=== PATIENT | female | born 2000 | race Caucasian/White ===

== ENCOUNTER 2024-09-26 08:47 | Emergency (ER) | payer OTHER, SELFPAY ==
[2024-09-26 08:53] VITALS: BP 125/80; PULSE 88; TEMP 37.2; O2SAT 99; BMI 28.2
--- OUTSIDE RECORDS SUMMARY | 2024-09-26 09:00 | XMS_ITS | Encounter Summary ---
Author Organization [facility] Address [address] [place] [address] Care Team Providers Care Endodontics Dentist Name Role Phone Keturah Saavedra Olvin NAVIGATING OFFICER-TRIGONOMETRY TEACHER Unavailable Ralph Taylor MD Primary Care Provider Blossom Cat NP Unavailable Beena Chambers NP Unavailable Blossom Badillo Unavailable Ralph Taylor MD Unavailable Tere Estrada NAVIGATING OFFICER-DIRECTOR OF FINANCIAL AID Unavailable Tere Estrada NAVIGATING OFFICER-DIRECTOR OF FINANCIAL AID Unavailable Mo Calero TEACHER EDUCATION DIRECTOR Unavailable Unavailable Savi Garcia LPCC Unavailable [phone] Encounter Details Date Type Department Care Team (Late st Contact Info) Description 09/01/2022 Abstract [facility] [address] [place] [address] Blossom Cat NP [address] [facility] [place] [address] Social History Tobacco Use Types Packs/Day Years Used Date Smoking Tobacco: Never Smokeless Tobacco: Never Alcohol Use Standard Drinks/Week Comments Never 0 (1 standard drink = 0.6 oz pure alcohol) Caffeine intake 1-2 cups per day, 1-2 drinks less than monthly in the past year Humiliation, Afraid, Rape, and Kick questionnair e Answer Date Recorded Within the last year, have y ou been afraid of your partner or ex-partner? No 08/04/2022 Within the last year, have y ou been humiliated or emotionally abused in other ways by your partner or ex-partner? No Within the last year, have y ou been kicked, hit, slapped, or otherwise physically hurt by your partner or ex-partner? No 08/04/2022 Within the last year, have y ou been raped or forced to have any kind of sexual activity by your partner or ex-partner? No 08/04/2022 Social Connection and Isolat ion Panel [NHANES] Answer Date Recorded In a typical week, how many times do you talk on the phone with family, friends, or neighbors? More than three times a week 08/04/2022 How often do you get togethe r with friends or relatives? Twice a week 08/04/2022 How often do you attend chur ch or judaism services? Never 08/04/2022 Do you belong to any clubs o r organizations such as congregation groups, unions, fraternal or athletic groups, or school groups? No 08/04/2022 How often do you attend meet ings of the clubs or organizations you belong to? Patient declined 08/04/2022 Are you , , di vorced, , never , or living with a partner? Never 08/04/2022 AUDIT-C Answer Date Recorded Q1: How often do you have a drink containing alcohol? Never 09/05/2022 Q2: How many drinks containi ng alcohol do you have on a typical day when you are drinking? Patient does not drink Q3: How often do you have si x or more drinks on one occasion? Never 09/05/2022 Overall Financial Resource Strain (CARDIA) Answe r Date Recorded How hard is it for you to pa y for the very basics like food, housing, medical care, and heating? Not hard at all 08/04/2022 PHQ-2 Answer Date Recorded Patient Health Questionnaire-2 Score 2 09/05/2022 [facility] - Occupational Stress Questionnaire Answer Date Recorded Do you feel stress - tense, restless, nervous, or anxious, or unable to sleep at night because your mind is troubled all the time - these days? Very much 08/04/2022 Exercise Vital Sign Answer Date Recorde d On average, how many days pe r week do you engage in moderate to strenuous exercise (like a brisk walk)? 7 days 08/04/2022 On average, how many minutes do you engage in exercise at this level? 60 min 08/04/2022 Hunger Vital Sign Answer Date Recorded Within the past 12 months, y ou worried that your food would run out before you got the money to buy more. Never true 08/05/19 23 Within the past 12 months, t he food you bought just didn't last and you didn't have money to get more. Never true 08/04/2022 PRAPARE - Transportation Answer Date Re corded In the past 12 months, has l ack of transportation kept you from medical appointments or from getting medications? No 07/17 In the past 12 months, has l ack of transportation kept you from meetings, work, or from getting things needed for daily living? No 08/04/2022 Housing Stability Vital Sign Answer Simone e Recorded In the last 12 months, was t here a time when you were not able to pay the mortgage or rent on time? No 08/04/2022 In the last 12 months, how many places have you lived? 1 08/04/2022 In the last 12 months, was t here a time when you did not have a steady place to sleep or slept in a half-way (including now)? No 08/04/2022 Comments No Sex and Gender Information Value Date Recorded Sex Assigned at Female 11/26/2023 8:38 AM EDT Legal Sex Female 6:44 PM EDT Gender Identity Female 11/26/2023 8:38 AM EDT Sexual Orientation Straight 11/26/2023 8: 38 AM EDT COVID-19 Exposure Response Date Recorded In the last 10 days, have yo u been in contact with someone who was confirmed or suspected to have Coronavirus/COVID-19? No / Unsure 08/04/2022 8:41 PM EDT documented as of this encounter Plan of Treatment Upcoming Encounters Date Type Department Care Team (Late st Contact Info) Description 09/29/2024 8:15 AM EDT Office Visit [facility] [address] [place] [phone] Mario Duckworth MD [address] [place] [address] 10/05/2024 10:00 AM EDT [facility] [address] [place] [address] Tere Estrada, NAVIGATING OFFICER-DIRECTOR OF FINANCIAL AID [address] [place] [address] 10/06/2024 10:40 AM EDT Office Visit [facility] [address] [place] [address] Beena Chambers, REPORTING CONSULTANT [address] [place] [phone] documented as of this encounter Visit Diagnoses Not on filedocumented in this encounter Additional Health Concerns Assessment Noted Time PHQ-9 Depression Total Score: 22 023 8:59 AM EDT documented as of this encounter Care Teams Endodontics Dentist Relationship Specialty Start Date End Date Keturah Saavedra, NAVIGATING OFFICER-TRIGONOMETRY TEACHER [address] [place] [address] PCP - [facility] 05/17/20 Ralph Taylor MD [address] [place] [address] PCP - General Family Medicine 07/01/22 Blossom Badillo [address] [place], [place] [id number] PCP - [facility] 09/16/22 Ralph Taylor MD [address] [place] [address] PCP - [facility] 10/17/22 Tere Estrada, NAVIGATING OFFICER-DIRECTOR OF FINANCIAL AID [address] [place] [address] PCP - [facility] 03/19/23 Blossom Oscar NP [address] [place] [address] Nurse Practitioner Family Medicine 10/07/22 04/22/24 Beena Chambers, REPORTING CONSULTANT [address] [place] [address] Nurse Practitioner Pulmonary Disease 10/07/22 Tere Estrada, NAVIGATING OFFICER-[facility] [address] [facility] [address] [place] [address] Nurse Practitioner Psychiatry 03/04/24 Mo Calero [facility] Director Behavioral Health 03/23/24 08/15/24 Savi Garcia, [facility] [address] [facility] [address] [place] [address] Research Center Director Behavioral Health 12/01/23 12/02/23 documented as of this encounter
--- OUTSIDE RECORDS SUMMARY | 2024-09-26 09:00 | XMS_ITS | Encounter Summary ---
Author Organization [facility] Address [address] [facility] [place] [address] Care Team Providers Care Jordan Man Name Role Phone Ralph Taylor MD Primary Care Provider [phone] Beena Chambers DRAWER IN Unavailable [phone] Aminah-Tere Rahman DIRECTOR SPEECH AND HEARING-DYNAMITER Unavailable Encounter Details Date Type Department Care Team (Late st Contact Info) Description 09/01/2024 Abstract [facility] [address] [place] [address] Beena Chambers, DRAWER IN [address] [place] [address] Social History Tobacco Use Types Packs/Day Years Used Date Smoking Tobacco: Never Smokeless Tobacco: Never Alcohol Use Standard Drinks/Week Comments Never 0 (1 standard drink = 0.6 oz pure alcohol) Caffeine intake 1 cups per day, 1-2 drinks less than monthly in the past year [id number] Health Literacy Answer Date Recor ded How often do you need to hav e someone help you when you read instructions, pamphlets, or other written material from your doctor or pharmacy? Never 11/13/2023 Humiliation, Afraid, Rape, and Kick questionnair e [...] neighbors? More than three times a week 11/13/2023 How often do you get togethe r with friends or relatives? Twice a week 11/13/2023 How often do you attend [facility] or judaism services? 1 to 4 times per year 11/13/2023 Do you belong to any clubs o r organizations such as yazidi groups, unions, fraternal or athletic groups, or school groups? No 11/13/2023 How often do you attend meet ings of the clubs or organizations you belong to? Never 11/13/2023 Are you , , di vorced, , never , or living with a partner? Never 11/13/2023 AUDIT-C Answer Date Recorded Q1: How often do you have a drink containing alc ohol? Monthly or less 08/15/2024 Q2: How many drinks containi ng alcohol do you have on a typical day when you are drinking? 1 or 2 08/15/2024 Q3: How often do you have si x or more drinks on one occasion? Never 08/15/2024 Overall Financial Resource Strain (CARDIA) Answe r Date Recorded How hard is it for you to pa y for the very basics like food, housing, medical care, and heating? Not very hard 11/13/2023 PHQ-2 Answer Date Recorded Patient Health Questionnaire-2 Score 0 09/01/2024 [facility] Occupat ional Health - Occupational Stress Questionnaire Answer Date Recorded Do you feel stress - tense, restless, nervous, or anxious, or unable to sleep at night because your mind is troubled all the time - these days? Only a little 11/13/2023 Exercise Vital Sign Answer Date Recorde d On average, how many days pe r week do you engage in moderate to strenuous exercise (like a brisk walk)? 4 days 11/13/2023 On average, how many minutes do you engage in exercise at this level? 30 min 11/13/2023 Hunger Vital Sign Answer Date Recorded Within the past 12 months, y ou worried that your food would run out before you got the money to buy more. Never true 11/13/19 24 Within the past 12 months, t he food you bought just didn't last and you didn't have money to get more. Never true 11/13/2023 PRAPARE - Transportation Answer Date Re corded In the past 12 months, has l ack of transportation kept you from medical appointments or from getting medications? No 10/18 In the past 12 months, has l ack of transportation kept you from meetings, work, or from getting things needed for daily living? No 11/13/2023 Housing Stability Vital Sign Answer Simone e [...] place to sleep or slept in a longterm (including now)? No 08/04/2022 Housing Stability Vital Sign Answer Simone e Recorded In the last 12 months, was t here a time when you were not able to pay the mortgage or rent on time? No 11/13/2023 In the past 12 months, how m any times have you moved where you were living? 0 11/13/2023 At any time in the past 12 m [facility], were you homeless or living in a longterm (including now)? No 11/13/2023 Education Answer Date Recorded What is the highest level of school you have completed or the highest degree you have received? 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 Question Answer Date of Assessment Author Little interest or pleasure in doing things Not at all 09/01/2024 10:40 AM EDT Odilia Rebollar MA Feeling down, depressed, or hopeless Not at all 09/01/2024 10:40 AM EDT Katey Rebollar MA Patient Health Questionnaire-2 Score 0 09/01/2024 10:40 AM EDT Oliver Rebollar MA documented as of this encounter Plan of Treatment Upcoming Encounters Date Type Department Care Team (Late st Contact Info) Description 09/29/2024 8:15 AM EDT Office Visit [facility] [address] [place] [phone] Mario Duckworth MD [address] [place] [address] 10/05/2024 10:00 AM EDT [facility] [address] [place] [address] Tere Estrada, DIRECTOR SPEECH AND HEARING-DYNAMITER [address] [place] [address] 10/06/2024 10:40 AM EDT Office Visit [facility] [address] [place] [phone] Beena Chambers NP [address] [place] [id number] documented as of this encounter Visit Diagnoses Not on filedocumented in this encounter Additional Health Concerns Assessment Noted Time PHQ-9 Depression Total Score: 18 025 1:44 PM EDT documented as of this encounter Care Teams Jordan Man Relationship Specialty Start Date End Date Ralph Taylor MD [address] [place] [address] PCP - General Family Medicine 07/01/22 Beena Chambers NP [address] [place] [phone] Nurse Practitioner Pulmonary Disease 10/07/22 Tere Estrada, DIRECTOR SPEECH AND HEARING-DYNAMITER [address] [facility] [address] [place] [address] Nurse Practitioner Psychiatry 03/04/24 documented as of this encounter
--- OUTSIDE RECORDS SUMMARY | 2024-09-26 09:00 | XMS_ITS | Clinical Summary ---
Author Organization [facility] Healthcare Address [address] [place] [address] Care Team Providers Care Law Secretary Name Role Phone Ralph Taylor MD Primary Care Provider [phone] Beena Chamebrs DIGITAL MEDIA SALES CONSULTANT Unavailable Aminah-Tere Rahman LAUNDRY ATTENDANT-VETERINARY MEDICAL OFFICER Unavailable Allergies Active Allergy Reactions Criticality Noted Date Comments Aripiprazole Other 11/10/2022 Increased tiredness/inability to focus Milk-Related Compounds Unknown 08/09/2021 Atomoxetine Hcl Headache 11/10/2022 Medications meclizine (Antivert) 25 MG tablet Take 25 mg by mouth as needed in the morning and 25 mg as needed at noon and 25 mg as needed in the evening for dizziness. 4 Active hydrOXYzine HCl (Atarax) 25 MG tabletIndications :Generalized anxiety disorder Take 1 tablet (25 mg) by mouth as needed at bedtime for anxiety 90 tablet 5 Active escitalopram (Lexapro) 10 MG tabletIndications :Generalized anxiety disorder Take 1 tablet (10 mg) by mouth Daily 30 tablet 2 5 07/20/19 26 Active lurasidone (Latuda) 40 MG tabletIndications :Bipolar II disorder (HCC) Take 1 tablet (40 mg) by mouth in the evening. Take with meals 30 tablet 2 5 Active lamoTRIgine (LaMICtal) 100 MG tabletIndications :Bipolar II disorder (HCC) Take 1.5 tablets (150 mg) by mouth Daily 45 tablet 2 5 Active norethindrone-eth inyl estradiol (June03/07) 1-20 MG-MCG tabletIndications :Encounter for surveillance of contraceptive pills,Family planning, BCP ( control pills) maintenance Take 1 tablet by mouth Daily 21 tablet 12 5 08/16/19 26 Active Multiple Vitamin (MULTIVITAMIN ADULT PO) Take by mouth Active cyanocobalamin (Vitamin B-12) 100 MCG tablet Take 100 mcg by mouth Daily 09/02/19 25 Discontinu ed(Therapy completed) Ascorbic Acid (vitamin C) 100 MG tablet Take 100 mg by mouth Daily 09/02/19 25 Discontinu ed(Therapy completed) doxycycline (Vibramycin) 100 MG capsuleIndication s:Dermatitis Take 1 capsule (100 mg) by mouth in the morning and 1 capsule (100 mg) before bedtime. Do all this for 10 days. Take with at least 8 ounces (large glass) of water, do not lie down for 30 minutes after. 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 Mixed obsessional thoughts and acts 08/11/2022 Moderate episode of recurrent major depressive d isorder 11/26/2021 Generalized anxiety disorder 11/26/2021 Obsessive-compulsive disorder 11/26/2021 Resolved Problems Problem Noted Date Diagnosed Date Resolved Date Diagnosis unknown 07/21/2022 09/02/2022 Encounters Date Type Department Care Team Description 09/01/2024 10:40 AM EDT [facility] [address] [place] [address] Beena Chambers NP Adult wellness visit (Primary Dx); Major depressive disorder, single episode, moderate (HCC); Other fatigue; Adult general medical examination; BMI 27.0-27.9,adult 09/01/2024 [facility] [address] [place] [address] Beena Chambers NP 09/01/2024 Abstract [facility] [address] [place] [address] Beena Chambers, KONSTANTIN 09/01/2024 Bamboo flowsheet [facility] [place] [facility] [address] [place] [address] Beena Chambers NP 09/01/2024 Travel 08/31/2024 Telephone [facility] [address] [place] [address] Agus Adhikari, DO 08/22/2024 Results Follow-Up [facility] [place] [facility] [address] [place] [address] Adriana Dewitt MA 08/17/2024 2:50 PM EDT Office Visit [facility] [address] [place] [address] Eric Shepherd, Dermatitis 08/17/2024 Travel 08/15/2024 2:30 PM EDT Office Visit [facility] [address] [place] [address] Agus Adhikari, DO Encounter for gynecological examination without abnormal finding (Primary Dx); Encounter for Papanicolaou smear of cervix; Screen for STD (sexually transmitted disease); Encounter for surveillance of contraceptive pills; Family planning, BCP ( control pills) maintenance 08/15/2024 Travel 07/26/2024 10:00 AM EDT Office Visit [facility] [address] [place] [address] Agus Adhikari, Bartholin's gland cyst (Primary Dx) 07/26/2024 Bamboo flowsheet [facility] [place] [facility] [address] [place] [address] Agus Adhikari, DO 07/26/2024 Travel 07/25/2024 Telephone [facility] [place] [facility] [address] [place] [phone] Trinity Martinez LPN 07/19/2024 9:30 AM EDT Office Visit [facility] [place] [facility] [address] [facility] [address] [place] [address] Tere Estrada, LAUNDRY ATTENDANT-VETERINARY MEDICAL OFFICER Generalized anxiety disorder ; Bipolar II disorder (HCC) 07/19/2024 Bamboo flowsheet [facility] [place] [facility] [address] [facility] [address] [place] [address] Tere Estrada, LAUNDRY ATTENDANT-VETERINARY MEDICAL OFFICER 07/19/2024 Travel 07/12/2024 Abstract [facility] [place] [facility] [address] [place] [address] Beena Chambers, DIGITAL MEDIA SALES CONSULTANT 07/08/2024 Telephone [facility] [place] [facility] [address] [facility] [address] [place] [phone] Fabiola De La Fuente LPN Behavior Problem from Last 3 Months Immunizations Immunization Administration Dates Next Due DTP 08/03/2014 DTaP, 5 pertussis antigens 04/30/2007 DTaP, Unspecified 05/15/2003, 3,03/03/2002,01/06 HPV 9-Valent 12/22/2019 HPV, Unspecified 10/12/2014,08/03/2014 Hep A, ped/adol, 2 dose 06/25/2020,12/22/2019 Hib (PRP-OMP) 02/03/2003,03/03/2002 Hib / Hep B 05/09/2002,01/06/2002 IPV 04/30/2007, 4,05/09/2002,03/03,01/06/2002 Influenza Whole 12/05/2011 Influenza, seasonal, injecta ble, preservative free 04/28/2024 MMR 02/03/2003 MMRV 04/30/2007 Meningococcal ACWY, unspecified 08/03/2014 Meningococcal B, Omv 06/25/2020,12/22/2019 Meningococcal MCV4O 12/22/2019 Pfizer Purple Cap SARS-CoV-2 Vaccination 02/21/2021,02/20/2021,06/19/2020,06/18,05/29/2020,05/28/2020 Pneumococcal Conjugate PCV 7 11/10/2002, 08/08/2002,03/03/2002,01/06 Varicella 02/03/2003 Family History Medical History Relation Name Comments Diabetes Father Pedro Diaz Hypertension Father Pedro Diaz Mental illness Father Pedro Diaz covid 19 Maternal Grandfather Atrial fibrillation Maternal Grandmother Asthma Mother Atrial fibrillation Mother Diabetes Mother Mental illness Mother Thyroid disease Mother COPD Paternal Grandfather No Known Problems Sister Cancer Neg Hx Relation Name Status Comments Brother 4 brothers Father Pedro Diaz Alive Maternal Grandfather Maternal Grandmother Alive Mother Alive Paternal Grandfather Alive Paternal Grandmother Alive Sister 2 sisters Social History Tobacco Use Types Packs/Day Years Used Date Smoking Tobacco: Never Smokeless Tobacco: Never Tobacco Cessation:Counseling Given: Not Answered Alcohol Use Standard Drinks/Week Comments Never 0 [...] week 11/13/2023 How often do you attend chur ch or restorationism services? 1 to 4 times per year 11/13/2023 Do you belong to any clubs o r organizations such as zoroastrian groups, unions, fraternal or athletic groups, or [...] Recorded Patient Health Questionnaire-2 Score 0 09/01/2024 [facility] [place] of Occupat ional Health - Occupational Stress [...] place to sleep or slept in a nursing home (including now)? No 08/04/2022 Housing Stability Vital Sign Answer Simone e Recorded In the last 12 months, was t here a time when you were not able to pay the mortgage or rent on time? No 11/13/2023 In the past 12 months, how m any times have you moved where you were living? 0 11/13/2023 At any time in the past 12 m [facility], were you homeless or living in a nursing home (including now)? 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 Not on file Last Filed Vital Signs Vital Sign Reading Time Taken Comments Blood Pressure 118/66 09/01/2024 10:35 AM EDT Pulse 98 09/01/2024 10:35 AM EDT Temperature 36.3 C (97.3 F) 09/01/2024 10:35 AM EDT Respiratory Rate 18 09/01/2024 10:35 AM EDT Oxygen Saturation 100% 09/01/2024 10:35 AM EDT Inhaled Oxygen Concentration - - Weight 83 kg (183 lb) 09/01/2024 10:35 AM EDT Height 170.2 cm (5' 7 ) 09/01/2024 10:35 AM EDT Body Mass Index 28.66 09/01/2024 10:35 AM EDT Plan of Treatment Upcoming Encounters Date Type Department Care Team (Late st Contact Info) Description 09/29/2024 8:15 AM EDT Office Visit [facility] [address] [place] [address] Mario Duckworth MD [address] [place] [address] 10/05/2024 10:00 AM EDT Office Visit [facility] [address] [place] [address] Tere Estrada, LAUNDRY ATTENDANT-VETERINARY MEDICAL OFFICER [address] [place] [address] 10/06/2024 10:40 AM EDT Office Visit [facility] [address] [place] [address] Beena Chambers, DIGITAL MEDIA SALES CONSULTANT [address] [place] [address] Health Maintenance Due Date Last Done Comments Influenza Vaccine (#1) 2024 04/28/2024, 2011 Procedures Procedure Name Priority Date/Time Associated Diagnosis Comments TSH Routine 09/02/2024 9:26 AM EDT Major depressive disorder, single episode, moderate (HCC) Other fatigue IRON AND TOTAL IRON BINDING CAPACITY Routine 09/02/2024 9:26 AM EDT Other fatigue VITAMIN B12 Routine 09/02/2024 9:26 AM EDT Major depressive disorder, single episode, moderate (HCC) Other fatigue VITAMIN D 25 HYDROXY TOTAL Routine 09/02/2024 9:26 AM EDT Major depressive disorder, single episode, moderate (HCC) Other fatigue CBC (INCLUDES DIFF/PLT) Routine 09/02/2024 9:26 AM EDT Adult general medical examination BMI 27.0-27.9,adult COMPREHENSIVE METABOLIC PANEL Routine 09/02/2024 9:26 AM EDT Adult general medical examination BMI 27.0-27.9,adult T4, FREE Routine 09/02/2024 9:26 AM EDT Major depressive disorder, single episode, moderate (HCC) Other fatigue LIPID PANEL Routine 09/02/2024 9:26 AM EDT Adult general medical examination BMI 27.0-27.9,adult IGP,CTNG,RFXAPTHPVALL ,/,45 Routine 08/15/2024 12:00 AM EDT Encounter for Papanicolaou smear of cervix Screen for STD (sexually transmitted disease) from Last 3 Months Results * Iron and TIBC (09/02/2024 9:26 AM EDT) Pathologist [facility] Iron Bind.Cap.(TIBC) 421 250 - 450 ug/dL [facility] UIBC 318 131 - 425 ug/dL [facility] Iron 103 27 - 159 ug/dL [facility] Iron Saturation 24 15 - 55 % [facility] Blood Venous blood specimen / Unknown 09/02/2024 9:26 AM EDT 09/02/2024 Narrative [facility] - 09/03/2024 9:07 AM EDT Performed at: 02 - [facility] [address], [place], [place] [id number] Concrete Placement Equipment Operator: Yoan Emery PhD, Phone: [phone] us Beena Chambers DIGITAL MEDIA SALES CONSULTANT LAB BLOOD ORDERABLES Final Re sult [facility] * Vitamin D 25 hydroxy Total (09/02/2024 9:26 AM EDT) Vitamin D, 25-Hydroxy 41.6 30.0 - 100.0 ng/mL [facility] Comment: Vitamin D deficiency has been defined by the [place] of [place] and an Endocrine Society practice guideline as a level of serum 25-OH vitamin D less than 20 ng/mL (1,2). The Endocrine Society went on to further define vitamin D insufficiency as a level between 21 and 29 ng/mL (2). 1. IOM ([place] of Medicine). 2010. Dietary reference intakes for calcium and D. [place]: The National Academies Press. 2. Gaurang MF, Abdoul DIAZ, Jason MCFADDEN, et al. Evaluation, treatment, and prevention of vitamin D deficiency: an Endocrine Society clinical practice guideline. JCEM. 2010; 96(7):1911-30. Blood Venous blood specimen / Unknown 09/02/2024 9:26 AM EDT 09/02/2024 Narrative [facility] - 09/03/2024 9:07 AM EDT Performed at: 02 - [facility] [id number] Concrete Placement Equipment Operator: Yoan Emery PhD, Phone: [phone] us Beena Chambers NP LAB BLOOD ORDERABLES Final Re sult [facility] * CBC and differential (09/02/2024 9:26 AM EDT) WBC 5.8 3.4 - 10.8 x10E3/uL [facility] RBC 4.67 3.77 - 5.28 x10E6/uL [facility] Hgb 13.9 11.1 - 15.9 g/dL [facility] Hct 42.2 34.0 - 46.6 % [facility] MCV 90 79 - 97 fL [facility] MCH 29.8 26.6 - 33.0 pg [facility] MCHC 32.9 31.5 - 35.7 g/dL [facility] RDW 12.4 11.7 - 15.4 % [facility] Platelets 246 150 - 450 x10E3/uL [facility] Neutrophils 49 Not Estab. % [facility] Lymphs 38 Not Estab. % [facility] Monocytes 11 Not Estab. % [facility] Eos 2 Not Estab. % [facility] Basos 0 Not Estab. % [facility] Neutrophils Abs 2.8 1.4 - 7.0 x10E3/uL [facility] Lymphs Abs 2.2 0.7 - 3.1 x10E3/uL [facility] MonocytesAbs 0.7 0.1 - 0.9 x10E3/uL [facility] Eos Abs 0.1 0.0 - 0.4 x10E3/uL [facility] Baso Abs 0.0 0.0 - 0.2 x10E3/uL [facility] Immature Granulocytes 0 Not Estab. % [facility] Immature Grans Abs 0.0 0.0 - 0.1 x10E3/uL [facility] Blood Venous blood specimen / Unknown 09/02/2024 9:26 AM EDT 09/02/2024 Narrative [facility] - 09/03/2024 9:07 AM EDT Performed at: - [place] [address] [facility], [address], [place] [id number] Concrete Placement Equipment Operator: Vikki Cowan MD, Phone: [phone] Beena Chambers NP LAB BLOOD ORDERABLES Final Re sult Performing Organization Address [facility] de Phone Number [facility] * TSH (09/02/2024 9:26 AM EDT) Pathologist [facility] TSH 1.190 0.450 - 4.500 uIU/mL [facility] Blood Venous blood specimen / Unknown 09/02/2024 9:26 AM EDT 09/02/2024 Narrative [facility] - 09/03/2024 9:07 AM EDT Performed at: [facility] [address] [facility], [address], [place] [id number] Concrete Placement Equipment Operator: Vikki Cowan MD, Phone: [phone] us Beena Ning [place] DIGITAL MEDIA SALES CONSULTANT LAB BLOOD ORDERABLES Final Re sult Performing Organization Address City/[facility] Co de Phone Number [facility] * T4, free (09/02/2024 9:26 AM EDT) Pathologist [facility] T4Free(Direct) 1.34 0.82 - 1.77 ng/dL [facility] Blood Venous blood specimen / Unknown 09/02/2024 9:26 AM EDT 09/02/2024 Narrative [facility] - 09/03/2024 9:07 AM EDT Performed at: 01 - [place] [address], [address], [place] [id number] Concrete Placement Equipment Operator: Vikki Cowan MD, Phone: [phone] Beena Chambers NP LAB BLOOD ORDERABLES Final Re sult Performing Organization Address City/[facility]/ZIP Co de Phone Number [facility] * Vitamin B12 (09/02/2024 9:26 AM EDT) [facility] Vitamin B12 385 232 - 1,245 pg/mL [facility] Blood Venous blood specimen / Unknown 09/02/2024 9:26 AM EDT 09/02/2024 Narrative [facility] - 09/03/2024 9:07 AM EDT Performed at: - [address] [id number] Concrete Placement Equipment Operator: Yoan Emery PhD, Phone: [phone] Beena Chambers NP LAB BLOOD ORDERABLES Final Re sult [facility] * (ABNORMAL) Lipid panel (09/02/2024 9:26 AM EDT) Cholesterol, Total 251(H) 100 - 199 mg/dL [facility] Triglycerides 122 0 - 149 mg/dL [facility] HDL Cholesterol 66 >39 mg/dL [facility] VLDL Cholesterol Terry 22 5 - 40 mg/dL [facility] LDL Chol Calc (NIH) 163(H) 0 - 99 mg/dL [facility] Blood Venous blood specimen / Unknown 09/02/2024 9:26 AM EDT 09/02/2024 Narrative [facility] - 09/03/2024 9:07 AM EDT Performed at: 02 - [address] [id number] Concrete Placement Equipment Operator: Yoan Emery PhD, Phone: [phone] us Beena Chambers DIGITAL MEDIA SALES CONSULTANT LAB BLOOD ORDERABLES Final Re sult [facility] * (ABNORMAL) Comprehensive metabolic panel (09/02/2024 9:26 AM EDT) [facility] Glucose 89 70 - 99 mg/dL [facility] BUN 12 6 - 20 mg/dL [facility] Creat 0.71 0.57 - 1.00 mg/dL [facility] EGFR 123 >59 mL/min/1.7 3 [facility] BUN/Creat Ratio 17 9 - 23 [facility] Sodium 139 134 - 144 mmol/L [facility] Potassium 4.5 3.5 - 5.2 mmol/L [facility] Chloride 100 96 - 106 mmol/L [facility] Carbon Dioxide 26 20 - 29 mmol/L [facility] Calcium 9.6 8.7 - 10.2 mg/dL [facility] Protein Total 7.3 6.0 - 8.5 g/dL [facility] Albumin 4.8 4.0 - 5.0 g/dL [facility] Globulin Total 2.5 1.5 - 4.5 g/dL [facility] Bili Total 0.5 0.0 - 1.2 mg/dL [facility] Alk Phosphatase 31(L) 44 - 121 IU/L [facility] AST 24 15 - 59 IU/L [facility] ALT 30 0 - 35 IU/L [facility] Blood Venous blood specimen / Unknown 09/02/2024 9:26 AM EDT 09/02/2024 Narrative [facility] - 09/03/2024 9:07 AM EDT Performed at: [facility] - [facility] [address], [address], [place], [place] [id number] Concrete Placement Equipment Operator: Vikki Cowan MD, Phone: [phone] us Beena Chambers DIGITAL MEDIA SALES CONSULTANT LAB BLOOD ORDERABLES Final Re sult [facility] * IGP,CTNG,RFXAPTHPVALL,16/18,45 (08/15/2024 12:00 AM EDT) Diagnosis: Comment [facility] Comment:NEGATIVE FOR INTRAEP ITHELIAL LESION OR MALIGNANCY. Specimen Adequacy: Comment [facility] Comment: Satisfactory for evaluation. Endocervical and/or squamous metaplastic cells (endocervical component) are present. Clinician Provided ICD10: Comment [facility] Comment: Z12.4 Z11.3 Performed By: Comment [facility] Comment:Blaise Vázquez, Cytolog ist (ASCP) Cyto Comments . [facility] Note: Comment [facility] Comment: The Pap smear is a screening test designed to aid in the detection of premalignant and malignant conditions of the uterine cervix. It is not a diagnostic procedure and should not be used as the sole means of detecting cervical cancer. Both false-positive and false-negative reports do occur. Test Methodology: Comment [facility] Comment: This liquid based ThinPrep(R) pap test was screened with the use of an image guided system. . Comment [facility] Comment: The HPV DNA reflex criteria were not met with this specimen result therefore, no HPV testing was performed. CHLAMYDIA, NUC. ACID AMP Negative Negative [facility] GONOCOCCUS, NUC. ACID AMP Negative Negative [facility] Swab 08/15/2024 08/16/2024 Narrative [facility] - 08/17/2024 11:07 AM EDT Performed at: 01 - [facility] [address] [id number] Concrete Placement Equipment Operator: Tricia Patten MD, Phone: [phone] Performed at: 02 - [facility] [id number] Concrete Placement Equipment Operator: Tricia Patten MD, Phone: [phone] Specimen Comment: No. of containers..01 ThinPrep Vial Agus Adhikari DO LAB BLOOD ORDERABLES Final R esult Performing Organization Address City/[facility]/ZIP Co de Phone Number [facility] from Last 3 Months Insurance [facility] Care Teams Law Secretary Relationship Specialty Start Date End Date Ralph Taylor MD [address] [place] [address] PCP - General Family Medicine 07/01/22 Beena Chambers, DIGITAL MEDIA SALES CONSULTANT [address] [place] [address] Nurse Practitioner Pulmonary Disease 10/07/22 Tere Estrada APRN-VETERINARY MEDICAL OFFICER [address] [facility] [address] [place] [address] Nurse Practitioner Psychiatry 03/04/24
--- OUTSIDE RECORDS SUMMARY | 2024-09-26 09:00 | XMS_ITS | Encounter Summary ---
Author Organization [facility] Address [address] [place] [address] Care Team Providers Care Manager Heavy Equipment Name Role Phone Ralph Taylor MD Primary Care Provider [phone] Beena Chambers LESSON INSTRUCTOR Unavailable [phone] Aminah-Tere Rahman PLUMBING HARDWARE ASSEMBLER-HOME OFFICE CLAIMS EXAMINER Unavailable Encounter Details Date Type Department Care Team (Late st Contact Info) Description 09/01/2024 Abstract [facility] [place] [facility] [address] [place] [address] Beena Chambers, LESSON INSTRUCTOR [address] [place] [address] Social History Tobacco Use Types [...] week 11/13/2023 How often do you attend [facility] or bahai services? 1 to 4 times per year 11/13/2023 Do you belong to any clubs o r organizations such as amish groups, unions, fraternal or athletic groups, or [...] Recorded Patient Health Questionnaire-2 Score 0 09/01/2024 [facility] [place] of Occupat ional Health - Occupational Stress [...] place to sleep or slept in a senior living (including now)? No 08/04/2022 Housing Stability Vital Sign Answer Simone e Recorded In the last 12 months, was t here a time when you were not able to pay the mortgage or rent on time? No 11/13/2023 In the past 12 months, how m any times have you moved where you were living? 0 11/13/2023 At any time in the past 12 m [facility], were you homeless or living in a senior living (including now)? 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 Not [...] [facility] [address] [place] [address] Mario Duckworth MD [address] [place] [address] 10/05/2024 10:00 AM EDT Office Visit [facility] [address] [place] [address] Tere Estrada, PLUMBING HARDWARE ASSEMBLER-HOME OFFICE CLAIMS EXAMINER [address] [place] [address] 10/06/2024 10:40 AM EDT Office Visit [facility] [address] [place] [address] Beena Chambers NP [address] [place] [address] documented as of this encounter Visit Diagnoses Not on filedocumented in this encounter Additional Health Concerns Assessment Noted Time PHQ-9 Depression Total Score: 18 025 1:44 PM EDT documented as of this encounter Care Teams Manager Heavy Equipment Relationship Specialty Start Date End Date Ralph Taylor MD [address] [place] [address] PCP - General Family Medicine 07/01/22 Beena Chambers NP [address] [place] [address] Nurse Practitioner Pulmonary Disease 10/07/22 Tere Estrada, PLUMBING HARDWARE ASSEMBLER-HOME OFFICE CLAIMS EXAMINER [address] [facility] [address] [place] [address] Nurse Practitioner Psychiatry 03/04/24 documented as of this encounter
--- OUTSIDE RECORDS SUMMARY | 2024-09-26 09:00 | XMS_ITS | Encounter Summary ---
Author Organization [facility] Address [address] [facility] [place] [address] Care Team Providers Care Brokerage Office Manager Name Role Phone Quentin Keturah Bah MANAGER SITE-REGULATORY AFFAIRS COORDINATOR Unavailable [phone] Ralph Taylor MD Primary Care Provider [phone] Blossom Cat NP Unavailable Beena Chambers SECTION WEAVER Unavailable [phone] Blossom Badillo Unavailable Ralph Taylor MD Unavailable [phone] Tere Estrada MANAGER SITE-MANAGER OF DIGITAL Unavailable Tere Estrada MANAGER SITE-MANAGER OF DIGITAL Unavailable Mo Calero QUALITATIVE EXECUTIVE RESEARCHER Unavailable Unavailable Savi Garcia LPCC Unavailable [phone] Reason for Visit * Reason Comments Med Refill Encounter Details Date Type Department Care Team (Late st Contact Info) Description 08/22/2022 Refill [facility] [address] [facility] [email or web address] [place] [address] Vandana Blackburn MD [address] [facility] [address] [place] [address] Acne vulgaris Social History Tobacco Use Types Packs/Day Years [...] 08/04/2022 How often do you attend chur or advent services? Never 08/04/2022 Do you belong to any clubs o r organizations such as taoist groups, unions, fraternal or athletic groups, or school groups? No 08/04/2022 How often do you attend meet ings of the clubs or organizations you belong to? Patient declined 08/04/2022 Are you , , di vorced, , never , or living with a partner? Never 08/04/2022 AUDIT-C Answer Date Recorded Q1: How often do you have a drink containing alcohol? Never 08/05/2022 Q2: How many drinks containi ng alcohol do you have on a typical day when you are drinking? Patient does not drink Q3: How often do you have si x or more drinks on one occasion? Never 08/05/2022 Overall Financial Resource Strain (CARDIA) Answe r Date Recorded How hard is it for you to pa y for the very basics like food, housing, medical care, and heating? Not hard at all 08/04/2022 PHQ-2 Answer Date Recorded Patient Health Questionnaire-2 Score 0 08/11/2022 [facility] [place] of Occupat ional Health - Occupational Stress [...] in a longterm (including now)? No 08/04/2022 Comments No Sex [...] Description 09/29/2024 8:15 AM EDT Office Visit [facility] [place] [facility] [address] [place] [address] Mario Duckworth MD [address] [place] [address] 10/05/2024 10:00 AM EDT Office Visit [facility] [address] [facility] [address] [place] [address] Tere Estrada, MANAGER SITE-MANAGER OF DIGITAL [address] [place] [address] 10/06/2024 10:40 AM EDT Office Visit [facility] [place] [facility] [address] [place] [address] Beena Chambers SECTION WEAVER [address] [place] [address] documented as of this encounter Visit Diagnoses Diagnosis Acne vulgaris Other acne documented in this encounter Additional Health Concerns Assessment Noted Time PHQ-9 Depression Total Score: 22 05/ 023 8:59 AM EDT documented as of this encounter Care Teams Brokerage Office Manager Relationship Specialty Start Date End Date Keturah Saavedra APRN-REGULATORY AFFAIRS COORDINATOR [address] [place] [address] PCP - [place] [employer] 05/17/20 Ralph Taylor MD [address] [address] PCP - General Family Medicine 07/01/22 Blossom Badillo [address] [place] [address] PCP - [place] [employer] 09/16/22 Ralph Taylor MD [address] [place] [address] PCP - [place] [employer] 10/17/22 Tere Estrada, MANAGER SITE-MANAGER OF DIGITAL [address] [facility] [address] [place] [address] PCP - [place] [employer] 03/19/23 Blossom Oscar, SECTION WEAVER [address] [place] [address] Nurse Practitioner Family Medicine 10/07/22 04/22/24 Beena Chambers, SECTION WEAVER [address] [place] [address] Nurse Practitioner Pulmonary Disease 10/07/22 Tere Estrada, MANAGER SITE-MANAGER OF DIGITAL [address] [facility] [address] [place] [address] Nurse Practitioner Psychiatry 03/04/24 Mo Calero LPC Gizzard Skin Remover Behavioral Health 03/23/24 08/15/24 Savi Garcia, [facility] [address] [facility] [address] [place] [address] Gizzard Skin Remover Behavioral Health 12/01/23 12/02/23 documented as of this encounter
--- OUTSIDE RECORDS SUMMARY | 2024-09-26 09:00 | XMS_ITS | Encounter Summary ---
Author Organization [facility] Address [address] [facility] [place] [address] Care Team Providers Care Senior Software Development Manager Name Role Phone Ralph Taylor MD Primary Care Provider [phone] Blossom Cat NP Unavailable Beena Chambers SEGMENTAL PAVER INSTALLER Unavailable [phone] Ralph Taylor MD Unavailable [phone] Tere Estrada ALUM MIXER-CATTLE FEEDER Unavailable Tere Estrada ALUM MIXER-CATTLE FEEDER Unavailable Mo Calero [facility] Unavailable Unavailable Savi Garcia [facility] Unavailable [phone] Reason for Visit * Reason Comments Med Change Request Encounter Details Date Type Department Care Team (Late st Contact Info) Description 01/17/2023 Refill [facility] [address] [facility] 160 [place] [address] Tere Estrada, ALUM MIXER-CATTLE FEEDER [address] [facility] 160 [place] [address] Bipolar 2 disorder (HCC) Social History Tobacco Use Types Packs/Day Years Used Date Smoking Tobacco: Never Smokeless Tobacco: Never Alcohol Use Standard Drinks/Week Comments Yes 0 (1 standard drink = 0.6 oz [...] week 08/04/2022 How often do you attend [facility] or scientologist services? Never 08/04/2022 Do you belong to any clubs o r organizations such as samaritan groups, unions, fraternal or athletic groups, or school groups? No 08/04/2022 How often do you attend meet ings of the clubs or organizations you belong to? Patient declined 08/04/2022 Are you , , di vorced, , never , or living with a partner? Never 08/04/2022 AUDIT-C Answer Date Recorded Q1: How often do you have a drink containing alc ohol? Monthly or less 11/10/2022 Q2: How many drinks containi ng alcohol do you have on a typical day when you are drinking? 1 or 2 11/10/2022 Q3: How often do you have si x or more drinks on one occasion? Never 11/10/2022 Overall Financial Resource Strain (CARDIA) Answe r Date Recorded How hard is it for you to pa y for the very basics like food, housing, medical care, and heating? Not hard at all 08/04/2022 PHQ-2 Answer Date Recorded Patient Health Questionnaire-2 Score 0 01/20/2023 [facility] of Occupat ional Health - Occupational Stress [...] place to sleep or slept in a group home (including now)? No 08/04/2022 Comments No Sex [...] suspected to have Coronavirus/COVID-19? No / Unsure 01/20/2023 1:20 PM EST documented as of this encounter Functional Status * Over the past 2 weeks, how often have you been bothered by any of the following problems? Question Answer Date of Assessment Author Little interest or pleasure in doing things Not at all 01/20/2023 1:38 PM Fabiola Villafana LP N Feeling down, depressed, or hopeless Not at all 01/20/2023 1:38 PM Fabiola Villafana LP N Patient Health Questionnaire -2 Score 0 01/20/2023 1:38 PM Fabiola Villafana LP N documented as of this encounter Miscellaneous Notes * Telephone Encounter - Fabiola De La Fuente LPN - 01/19/2023 8:49 AM EST Patient has appt tomorrow, dose might be adjusted documented in this encounter Plan of Treatment Upcoming Encounters Date Type Department Care Team (Late st Contact Info) Description 09/29/2024 8:15 AM EDT Office Visit [facility] [address] [place] [address] Mario Duckworth MD [address] [place] [address] 10/05/2024 10:00 AM EDT Office Visit [facility] [address] [place] [address] Tere Estrada APRN-CATTLE FEEDER [address] [place] [address] 10/06/2024 10:40 AM EDT Office Visit [facility] [address] [place] [address] Beena Chambers NP [address] [place] [phone] documented as of this encounter Visit Diagnoses Diagnosis Bipolar 2 disorder (HCC) Other bipolar disorders documented in this encounter Additional Health Concerns Assessment Noted Time PHQ-9 Depression Total Score: 22 023 8:59 AM EDT documented as of this encounter Care Teams Senior Software Development Manager Relationship Specialty Start Date End Date Ralph Taylor MD [address] [place] [address] PCP - General Family Medicine 07/01/22 Ralph Taylor MD [address] [place] [address] PCP - [employer] 10/17/22 Tere Estrada, ALUM MIXER-CATTLE FEEDER [address] [facility] [address] [place] [address] PCP - [employer] 03/19/23 4 Blossom Cat NP [address] [place] [address] Nurse Practitioner Family Medicine 10/07/22 04/22/24 Beena Chambers, SEGMENTAL PAVER INSTALLER [address] [place] [address] Nurse Practitioner Pulmonary Disease 10/07/22 Tere Estrada ALUM MIXER-CATTLE FEEDER [address] [facility] [address] [place] [address] Nurse Practitioner Psychiatry 03/04/24 Mo Calero LPC Diesel Engine Engineer Behavioral Health 03/23/24 08/15/24 Savi Garcia, [facility] [address] [place] [address] Diesel Engine Engineer Behavioral Health 12/01/23 12/02/23 documented as of this encounter
--- OUTSIDE RECORDS SUMMARY | 2024-09-26 09:01 | XMS_ITS | Encounter Summary ---
Author Organization [facility] Address [address] [facility] [place] [address] Care Team Providers Care Tafe Registrar Name Role Phone Ralph Taylor MD Primary Care Provider [phone] Beena Chambers SYSTEMS PLANNER Unavailable [phone] Tere Estrada DSP ENGINEER-INSURANCE UNDERWRITING ASSISTANT Unavailable Mo Calero LPC Unavailable Unavailable Encounter Details Date Type Department Care Team (Late st Contact Info) Description 07/12/2024 Abstract [facility] [address] [place] [address] Beena Chambers, SYSTEMS PLANNER [address] [place] [address] Social History Tobacco Use Types Packs/Day Years [...] 11/13/2023 How often do you attend chur or yazdanism services? 1 to 4 times per year [...] drink containing alc ohol? Monthly or less 11/13/2023 Q2: How many drinks containi ng alcohol do you have on a typical day when you are drinking? 1 or 2 11/13/2023 Q3: How often do you have si x or more drinks on one occasion? Never 11/13/2023 Overall Financial Resource Strain (CARDIA) Answe r Date Recorded How hard is it for you to pa y for the very basics like food, housing, medical care, and heating? Not very hard 11/13/2023 PHQ-2 Answer Date Recorded Patient Health Questionnaire-2 Score 1 05/04/2024 [facility] of Occupat ional Health - [...] place to sleep or slept in a long-term (including now)? No 08/04/2022 Housing Stability Vital Sign Answer Simone e Recorded In the last 12 months, was t here a time when you were not able to pay the mortgage or rent on time? No 11/13/2023 In the past 12 months, how m any times have you moved where you were living? 0 11/13/2023 At any time in the past 12 m [facility], were you homeless or living in a long-term (including now)? 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 Not on file documented as of this encounter Plan of Treatment Upcoming Encounters Date Type Department Care Team (Late st Contact Info) Description 09/29/2024 8:15 AM EDT Office Visit [facility] [address] [place] [address] Mario Duckworth MD [address] [place] [address] 10/05/2024 10:00 AM EDT Office Visit [facility] [address] [place] [address] Tere Estrada APRN-INSURANCE UNDERWRITING ASSISTANT [address] [place] [address] 10/06/2024 10:40 AM EDT Office Visit [facility] [address] [place] [address] Beena Chambers NP [address] [place] [address] documented as of this encounter Visit Diagnoses Not on filedocumented in this encounter Additional Health Concerns Assessment Noted Time PHQ-9 Depression Total Score: 18 025 1:44 PM EDT documented as of this encounter Care Teams Tafe Registrar Relationship Specialty Start Date End Date Ralph Taylor MD [address] [place] [address] PCP - General Family Medicine 07/01/22 Beena Chambers NP [address] [place] [address] Nurse Practitioner Pulmonary Disease 10/07/22 Tere Estrada, DSP ENGINEER-INSURANCE UNDERWRITING ASSISTANT [address] [place] [address] Nurse Practitioner Psychiatry 03/04/24 Mo Calero LPC Dolphin Trainer Behavioral Health 03/23/24 08/15/24 documented as of this encounter
--- OUTSIDE RECORDS SUMMARY | 2024-09-26 09:01 | XMS_ITS | Encounter Summary ---
Author Organization [facility] Address [address] [place] [facility] [place] [address] Care Team Providers Care Manager Of Financial Name Role Phone Ralph Taylor MD Primary Care Provider [phone] Beena Chambers BREAD ICER Unavailable [phone] Tere Estrada CHARGING MACHINE OPERATOR-SALES OPERATIONS LEAD Unavailable Mo Calero LPC Unavailable Unavailable Encounter Details Date Type Department Care Team (Late st Contact Info) Description 06/09/2024 Abstract [facility] [address] [place] [address] Beena Chambers, BREAD ICER [address] [place] [address] Social History Tobacco Use Types Packs/Day Years [...] How often do you attend chur or voodoo services? 1 to 4 times per year [...] Recorded Patient Health Questionnaire-2 Score 1 05/04/2024 [facility] of Occupat ional Health - Occupational [...] place to sleep or slept in a fdc (including now)? No 08/04/2022 Housing Stability Vital Sign Answer Simone e Recorded In the last 12 months, was t here a time when you were not able to pay the mortgage or rent on time? No 11/13/2023 In the past 12 months, how m any times have you moved where you were living? 0 11/13/2023 At any time in the past 12 m [facility], were you homeless or living in a fdc (including now)? 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 Not on file documented as of this encounter Plan of Treatment Upcoming Encounters Date Type Department Care Team (Late st Contact Info) Description 09/29/2024 8:15 AM EDT Office Visit [facility] [address] [place] [address] Mario Duckworth MD [address] [place] [address] 10/05/2024 10:00 AM EDT Office Visit [facility] [address] [place] [address] Tere Estrada APRN-SALES OPERATIONS LEAD [address] [place] [address] 10/06/2024 10:40 AM EDT Office Visit [facility] [address] [place] [address] Beena Chambers NP [address] [place] [address] documented as of this encounter Visit Diagnoses Not on filedocumented in this encounter Additional Health Concerns Assessment Noted Time PHQ-9 Depression Total Score: 18 025 1:44 PM EDT documented as of this encounter Care Teams Manager Of Financial Relationship Specialty Start Date End Date Ralph Taylor MD [address] [place] [address] PCP - General Family Medicine 07/01/22 Beena Chambers NP [address] [place] [address] Nurse Practitioner Pulmonary Disease 10/07/22 Tere Estrada, CHARGING MACHINE OPERATOR-SALES OPERATIONS LEAD [address] [place] [address] Nurse Practitioner Psychiatry 03/04/24 Mo Calero LPC Clinical Project Manager Behavioral Health 03/23/24 08/15/24 documented as of this encounter
--- OUTSIDE RECORDS SUMMARY | 2024-09-26 09:01 | XMS_ITS | Encounter Summary ---
Author Organization [facility] Address [address] [facility] [place] [address] Care Team Providers Care Global Upstream Marketing Manager Name Role Phone Ralph Taylor MD Primary Care Provider [phone] Blossom Cat NP Unavailable Beena Chambers IT SUPPORT ANALYST Unavailable [phone] Tere Estrada FLIGHT RADIO OPERATOR-VOLUNTEER SERVICES SUPERVISOR Unavailable Mo Calero FEATHER SEPARATOR Unavailable Unavailable Savi Garcia LPCC Unavailable [phone] Reason for Visit * Reason Comments Med Change Request Encounter Details Date Type Department Care Team (Late st Contact Info) Description 09/18/2023 Refill [facility] 112 [facility] 160 [place] [address] Tere Estrada FLIGHT RADIO OPERATOR-VOLUNTEER SERVICES SUPERVISOR 112 [facility] 160 [place] [address] Generalized anxiety disorder Social History Tobacco Use Types Packs/Day Years [...] often do you attend chur ch or religion services? Never 08/04/2022 Do you belong to any clubs o r organizations such as anabaptism groups, unions, fraternal or athletic groups, or school groups? No 08/04/2022 How often do you attend meet ings of the clubs or organizations you belong to? Patient declined 08/04/2022 Are you , , di vorced, , never , or living with a partner? Never 08/04/2022 AUDIT-C Answer Date Recorded Q1: How often do you have a drink containing alc ohol? 2-4 times a month 08/27/2023 Q2: How many drinks containi ng alcohol do you have on a typical day when you are drinking? 1 or 2 08/27/2023 Q3: How often do you have si x or more drinks on one occasion? Never 08/27/2023 Overall Financial Resource Strain (CARDIA) Answe r Date Recorded How hard is it for you to pa y for the very basics like food, housing, medical care, and heating? Not hard at all 08/04/2022 PHQ-2 Answer Date Recorded Patient Health Questionnaire-2 Score 0 08/27/2023 [facility] [place] of Occupat ional Health - Occupational Stress [...] place to sleep or slept in a fpc (including now)? No 08/04/2022 Comments No Sex and Gender Information Value Date Recorded Sex Assigned at Female 11/26/2023 8:38 AM EDT Legal Sex Female 6:44 PM EDT Gender Identity Female 11/26/2023 8:38 AM EDT Sexual Orientation Straight 11/26/2023 8: 38 AM EDT documented as of this encounter Plan of Treatment Upcoming Encounters Date Type Department Care Team (Late st Contact Info) Description 09/29/2024 8:15 AM EDT Office Visit [facility] [place] [facility] [address] [place] [address] Mario Duckworth MD [address] [place] [address] 10/05/2024 10:00 AM EDT Office Visit [facility] 112 [facility] [address] [place] [address] Tere Estrada, FLIGHT RADIO OPERATOR-VOLUNTEER SERVICES SUPERVISOR 112 [facility] [address] [place] [address] 10/06/2024 10:40 AM EDT Office Visit [facility] [place] [facility] [address] [place] [address] Beena Chambers, IT SUPPORT ANALYST [address] [place] [address] documented as of this encounter Visit Diagnoses Diagnosis Generalized anxiety disorder Generalized anxiety disorder documented in this encounter Additional Health Concerns Assessment Noted Time PHQ-9 Depression Total Score: 023 8:59 AM EDT documented as of this encounter Care Teams Global Upstream Marketing Manager Relationship Specialty Start Date End Date Ralph Taylor MD [address] [place] [address] PCP - General Family Medicine 07/01/22 Blossom Cat NP [address] [place] [address] Nurse Practitioner Family Medicine 10/07/22 04/22/24 Beena Chambers NP [address] [place] [address] Nurse Practitioner Pulmonary Disease 10/07/22 Tere Estrada, FLIGHT RADIO OPERATOR-VOLUNTEER SERVICES SUPERVISOR [address] [facility] 160 [place] [address] Nurse Practitioner Psychiatry 03/04/24 Mo Calero LPC Rheostat Assembler Behavioral Health 03/23/24 08/15/24 Savi Garcia, [facility] [address] [place] [id number] Rheostat Assembler Behavioral Health 12/01/23 12/02/23 documented as of this encounter
--- OUTSIDE RECORDS SUMMARY | 2024-09-26 09:01 | XMS_ITS | Encounter Summary ---
Author Organization [facility] Address [address] [facility] [place] [address] Care Team Providers Care Executive Sales Manager Name Role Phone Ralph Taylor MD Primary Care Provider [phone] Beena Chambers ICE CREAM MIXER Unavailable [phone] Tere Estrada MORPHOLOGY TEACHER-APPRAISER TIMBER Unavailable Mo Calero LPC Unavailable Unavailable Encounter Details Date Type Department Care Team (Late st Contact Info) Description 06/09/2024 Abstract [facility] [address] [place] [address] Beena Chambers, ICE CREAM MIXER [address] [place] [address] Social History Tobacco Use Types Packs/Day Years [...] How often do you attend chur or faith services? 1 to 4 times per year 11/13/2023 Do you belong to any clubs o r organizations such as jain groups, unions, fraternal or athletic groups, or [...] Recorded Patient Health Questionnaire-2 Score 1 05/04/2024 [facility] of Occupat ional Health - Occupational Stress [...] place to sleep or slept in a residential (including now)? No 08/04/2022 Housing Stability Vital Sign Answer Simone e Recorded In the last 12 months, was t here a time when you were not able to pay the mortgage or rent on time? No 11/13/2023 In the past 12 months, how m any times have you moved where you were living? 0 11/13/2023 At any time in the past 12 m [facility], were you homeless or living in a residential (including now)? 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 Not on file documented as of this encounter Plan of Treatment Upcoming Encounters Date Type Department Care Team (Late st Contact Info) Description 09/29/2024 8:15 AM EDT Office Visit [facility] [address] [place] [address] Mario Duckworth MD [address] [place] [address] 10/05/2024 10:00 AM EDT Office Visit [facility] [address] [place] [address] Tere Estrada APRN-APPRAISER TIMBER [address] [place] [address] 10/06/2024 10:40 AM EDT Office Visit [facility] [place] [facility] [address] [place] [address] Beena Chambers NP [address] [place] [place] [address] documented as of this encounter Visit Diagnoses Not on filedocumented in this encounter Additional Health Concerns Assessment Noted Time PHQ-9 Depression Total Score: 18 025 1:44 PM EDT documented as of this encounter Care Teams Executive Sales Manager Relationship Specialty Start Date End Date Ralph Taylor MD [address] [place] [address] PCP - General Family Medicine 07/01/22 Beena Chambers NP [address] [place] [address] Nurse Practitioner Pulmonary Disease 10/07/22 Tere Estrada, MORPHOLOGY TEACHER-APPRAISER TIMBER [address] [place] [address] Nurse Practitioner Psychiatry 03/04/24 Mo Calero LPC Process Trainer Behavioral Health 03/23/24 08/15/24 documented as of this encounter
--- OUTSIDE RECORDS SUMMARY | 2024-09-26 09:01 | XMS_ITS | Encounter Summary ---
Author Organization [facility] Address [address] [facility] [place] [address] Care Team Providers Care Breaker Table Worker Name Role Phone Ralph Taylor MD Primary Care Provider Blossom Cat NP Unavailable Beena Chambers SHANK PAPERER Unavailable [phone] Tere Estrada DAIRY TESTER-STUD SETTER Unavailable Mo Calero LPC Unavailable Unavailable Reason for Visit * Reason Comments Med Change Request Encounter Details Date Type Department Care Team (Late st Contact Info) Description 04/22/2024 Refill [facility] 112 [facility] 160 [place] [address] Tere Estrada, DAIRY TESTER-STUD SETTER 112 [facility] 160 [place] [address] Generalized anxiety disorder Social History Tobacco Use [...] week 11/13/2023 How often do you attend [facility] or voodoo services? 1 to 4 times per year 11/13/2023 Do you belong to any clubs o r organizations such as nondenominational groups, unions, fraternal or athletic groups, or [...] Date Recorded Patient Health Questionnaire-2 Score 0 03/30/2024 [facility] - Occupational Stress Questionnaire Answer Date [...] place to sleep or slept in a long term (including now)? No 08/04/2022 Housing Stability Vital Sign Answer Simone e Recorded In the last 12 months, was t here a time when you were not able to pay the mortgage or rent on time? No 11/13/2023 In the past 12 months, how m any times have you moved where you were living? 0 11/13/2023 At any time in the [facility] were you homeless or living in a long term (including now)? 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 Not on file Not on file documented as of this encounter Miscellaneous Notes * Telephone Encounter - Fabiola De La Fuente LPN - 04/25/2024 10:34 AM EDT May not stay on this dose documented in this encounter Plan of Treatment Upcoming Encounters Date Type Department Care Team (Late st Contact Info) Description 09/29/2024 8:15 AM EDT Office Visit NOMJacey [facility]LL[facility] [address] [place] [address] Mario Duckworth MD [address] [place] [address] 10/05/2024 10:00 AM EDT Office Visit [facility] [address] [place] [address] Tere Estrada APRN-STUD SETTER [address] [place] [address] 10/06/2024 10:40 AM EDT Office Visit [facility] [place] [facility] [address] [place] [address] Beena Chambers NP [address] [place] [address] documented as of this encounter Visit Diagnoses Diagnosis Generalized anxiety disorder Generalized anxiety disorder documented in this encounter Additional Health Concerns Assessment Noted Time PHQ-9 Depression Total Score: 22 05/2 023 8:59 AM EDT documented as of this encounter Care Teams Breaker Table Worker Relationship Specialty Start Date End Date Ralph Taylor MD [address] [place] [address] PCP - General Family Medicine 07/01/22 Blossom Cat NP [address] [place] [address] Nurse Practitioner Family Medicine 10/07/22 04/22/24 Beena Chambers, SHANK PAPERER [address] [place] [address] Nurse Practitioner Pulmonary Disease 10/07/22 Tere Estrada APRN-STUD SETTER [address] [facility] 160 [place] [address] Nurse Practitioner Psychiatry 03/04/24 Mo Calero LPC Offset Duplicating Machine Operator Behavioral Health 03/23/24 08/15/24 documented as of this encounter
--- OUTSIDE RECORDS SUMMARY | 2024-09-26 09:01 | XMS_ITS | Encounter Summary ---
Author Organization [facility] Address [address] [facility] [place] [address] Care Team Providers Care Global Account Director Name Role Phone Ralph Taylor MD Primary Care Provider [phone] Blossom Cat NP Unavailable Beena Chambers MINING CAPTAIN Unavailable [phone] Tere Estrada CONSULTANT INTERN-MEDICAL RECEPTIONIST MEDICAL ASSISTANT Unavailable Tere Estrada CONSULTANT INTERN-MEDICAL RECEPTIONIST MEDICAL ASSISTANT Unavailable Mo Calero DRY PRESS OPERATOR Unavailable Unavailable Savi Garcia [facility] Unavailable [phone] Reason for Visit * Reason Onset Date Comments Med Refill 06/16/2023 Encounter Details Date Type Department Care Team (Late st Contact Info) Description 06/16/2023 Refill [facility] 112 [facility] 160 [place] [address] Tere Estrada, CONSULTANT INTERN-MEDICAL RECEPTIONIST MEDICAL ASSISTANT 112 [facility] 160 [place] [address] Moderate episode of recurrent major depressive disorder (HCC); High risk medication use Social History Tobacco Use Types Packs/Day Years [...] week 08/04/2022 How often do you attend [facility] or sabianist services? Never 08/04/2022 Do you belong to any clubs o r organizations such as hoahaoism groups, unions, fraternal or athletic groups, or school groups? No 08/04/2022 How often do you attend meet ings of the clubs or organizations you belong to? Patient declined 08/04/2022 Are you , , di vorced, , never , or living with a partner? Never 08/04/2022 AUDIT-C Answer Date Recorded Q1: How often do you have a drink containing alc ohol? Monthly or less 03/21/2023 Q2: How many drinks containi ng alcohol do you have on a typical day when you are drinking? 1 or 2 03/21/2023 Q3: How often do you have si x or more drinks on one occasion? Never 03/21/2023 Overall Financial Resource Strain (CARDIA) Answe r Date Recorded How hard is it for you to pa y for the very basics like food, housing, medical care, and heating? Not hard at all 08/04/2022 PHQ-2 Answer Date Recorded Patient Health Questionnaire-2 Score 2 05/18/2023 [facility] of Occupat ional Health - [...] place to sleep or slept in a jail (including now)? No 08/04/2022 Comments No Sex and Gender Information Value Date Recorded Sex Assigned at Female 11/26/2023 8:38 AM EDT Legal Sex Female 6:44 PM EDT Gender Identity Female 11/26/2023 8:38 AM EDT Sexual Orientation Straight 11/26/2023 8: 38 AM EDT documented as of this encounter Miscellaneous Notes * Telephone Encounter - Roz Lay - 06/22/2023 9:53 AM EDT Patient needs a refill on lamictal documented in this encounter Plan of Treatment Upcoming Encounters Date Type Department Care Team (Late st Contact Info) Description 09/29/2024 8:15 AM EDT Office Visit LORENZO[facility]acey [place] [facility] [address] [place] [address] Mario Duckworth MD [address] [place] [address] 10/05/2024 10:00 AM EDT Office Visit [facility] [place] [facility] 112 [facility] 160 [place] [address] Tere Estrada APRN-MEDICAL RECEPTIONIST MEDICAL ASSISTANT [address] [facility] 160 [place] [address] 10/06/2024 10:40 AM EDT Office Visit [facility] [place] [facility] [address] [place] [address] Beena Chambers NP [address] [place] [address] documented as of this encounter Visit Diagnoses Diagnosis Moderate episode of recurrent major depressive disorder (HCC) High risk medication use documented in this encounter Additional Health Concerns Assessment Noted Time PHQ-9 Depression Total Score: 22 023 8:59 AM EDT documented as of this encounter Care Teams Global Account Director Relationship Specialty Start Date End Date Ralph Taylor MD [address] [place] [address] PCP - General Family Medicine 07/01/22 Tere Estrada, CONSULTANT INTERN-MEDICAL RECEPTIONIST MEDICAL ASSISTANT 112 [facility] 160 [place] [address] PCP - [employer] Commercial 03/19/23 4 Blossom Cat, MINING CAPTAIN [address] [place] [address] Nurse Practitioner Family Medicine 10/07/22 04/22/24 Beena Chambers, MINING CAPTAIN [address] [place] [address] Nurse Practitioner Pulmonary Disease 10/07/22 Tere Estrada, CONSULTANT INTERN-MEDICAL RECEPTIONIST MEDICAL ASSISTANT [address] [facility] 160 [place] [address] Nurse Practitioner Psychiatry 03/04/24 Mo Calero LPC Marine Farmer [facility] 03/23/24 08/15/24 Savi Garcia, [facility] [address] [place] [address] Marine Farmer [facility] 12/01/23 12/02/23 documented as of this encounter
--- OUTSIDE RECORDS SUMMARY | 2024-09-26 09:01 | XMS_ITS | Encounter Summary ---
Author Organization [facility] Address [address] [facility] [place] [address] Care Team Providers Care Portable Power Tool Repairer Name Role Phone Ralph Taylor MD Primary Care Provider [phone] Blossom Cat NP Unavailable Beena Chambers SPORTS DEVELOPMENT OFFICER Unavailable Tere Estrada HOLE FILLER-HUMAN RESOURCES OFFICER Unavailable Mo Calero BRAKE SHOE REBUILDER Unavailable Unavailable Savi Garcia LPCC Unavailable [phone] Reason for Visit * Reason Comments Med Refill Encounter Details Date Type Department Care Team (Late st Contact Info) Description 09/24/2023 Refill [facility] 112 [facility] 160 [place] [address] Tere Estrada HOLE FILLER-HUMAN RESOURCES OFFICER 112 [facility] 160 [place] [address] Generalized anxiety disorder Social History Tobacco Use [...] often do you attend chur ch or rastafarian services? Never 08/04/2022 Do you belong to any clubs o r organizations such as advent groups, unions, fraternal or athletic groups, or [...] Recorded Patient Health Questionnaire-2 Score 0 08/27/2023 [facility] of Occupat ional Health - Occupational Stress [...] place to sleep or slept in a snf (including now)? No 08/04/2022 Comments No Sex [...] AM EDT Office Visit [facility] [place] [facility] [address] [place] [address] Mario Duckworth MD [address] [place] [address] 10/05/2024 10:00 AM EDT Office Visit [facility] 112 [facility] 160 [place] [address] Tere Estrada, HOLE FILLER-HUMAN RESOURCES OFFICER 112 [facility] [address] [place] [address] 10/06/2024 10:40 AM EDT Office Visit [facility] [place] [facility] [address] [place] [address] Beena Chambers, SPORTS DEVELOPMENT OFFICER [address] [place] [address] documented as of this encounter Visit Diagnoses Diagnosis Generalized anxiety disorder Generalized anxiety disorder documented in this encounter Additional Health Concerns Assessment Noted Time PHQ-9 Depression Total Score: 023 8:59 AM EDT documented as of this encounter Care Teams Portable Power Tool Repairer Relationship Specialty Start Date End Date Ralph Taylor MD [address] [place] [address] PCP - General Family Medicine 07/01/22 Blossom Cat NP [address] [place] [address] Nurse Practitioner Family Medicine 10/07/22 04/22/24 Beena Chambers NP [address] [place] [address] Nurse Practitioner Pulmonary Disease 10/07/22 Tere Estrada, HOLE FILLER-HUMAN RESOURCES OFFICER 112 [facility] 160 [place] [address] Nurse Practitioner Psychiatry 03/04/24 Mo Calero LPC Marine Engine Machinist Apprentice Behavioral Health 03/23/24 08/15/24 Savi Garcia, [facility] [address] [place] [id number] Marine Engine Machinist Apprentice Behavioral Health 12/01/23 12/02/23 documented as of this encounter
--- OUTSIDE RECORDS SUMMARY | 2024-09-26 09:01 | XMS_ITS | Encounter Summary ---
Author Organization [facility] Address [address] [facility] [place] [address] Care Team Providers Care Poly Packer And Heat Sealer Name Role Phone Keturah Saavedra Olvin MEDICAID NURSE-SCHOOL PHOTOGRAPHER Unavailable [phone] Ralph Taylor MD Primary Care Provider Blossom Cat NP Unavailable Beena Chambers NP Unavailable Blossom Badillo Unavailable Ralph Taylor MD Unavailable [phone] Tere Estrada MEDICAID NURSE-INDUSTRIAL SALES REPRESENTATIVE Unavailable Tere Estrada MEDICAID NURSE-INDUSTRIAL SALES REPRESENTATIVE Unavailable Mo Calero COOK FRY Unavailable Unavailable Savi Garcia LPCC Unavailable [phone] Encounter Details Date Type Department Care Team (Late st Contact Info) Description 06/24/2022 Abstract [facility] [place] [facility] [address] [place] [address] Blossom Cat NP [address] [facility] [place] [address] Social History Tobacco Use Types Packs/Day Years Used Date Smoking Tobacco: Never Tobacco Cessation:Counseling Given: Not Answered Alcohol Use Standard Drinks/Week Comments Yes 0 (1 standard drink = 0.6 oz pure alcohol) Caffeine intake 1-2 cups per day, 1-2 drinks less than monthly in the past year Comments Unknown Sex and Gender Information Value Date Recorded Sex Assigned at Female 11/26/2023 8:38 AM EDT Legal Sex Female 6:44 PM EDT Gender Identity Female 11/26/2023 8:38 AM EDT Sexual Orientation Straight 11/26/2023 8: 38 AM EDT documented as of this encounter Plan of Treatment Upcoming Encounters Date Type Department Care Team (Late st Contact Info) Description 09/29/2024 8:15 AM EDT Office Visit SARAH [facility] [address] [place] [address] Mario Duckworth MD [address] [place] [address] 10/05/2024 10:00 AM EDT Office Visit [facility] [address] [facility] 160 [place] [address] Tere Estrada, MEDICAID NURSE-INDUSTRIAL SALES REPRESENTATIVE [address] [facility] 160 [place] [address] 10/06/2024 10:40 AM EDT Office Visit [facility] [place] [facility] [address] [place] [address] Beena Chambers, PRODUCTION LEAD [address] [place] [address] documented as of this encounter Visit Diagnoses Not on filedocumented in this encounter Care Teams Poly Packer And Heat Sealer Relationship Specialty Start Date End Date Keturah Saavedra, MEDICAID NURSE-SCHOOL PHOTOGRAPHER [address] [place] [address] PCP - [place] [employer] 05/17/20 Ralph Taylor MD [address] [place] [address] PCP - General Family Medicine 07/01/22 Blossom Badillo [address] [place] [address] PCP - [place] 09/16/22 Ralph Taylor MD [address] [place] [address] PCP - [place] [employer] 10/17/22 Tere Estrada, MEDICAID NURSE-INDUSTRIAL SALES REPRESENTATIVE [address] [facility] 160 [place] [address] PCP - [place] 03/19/23 Blossom Oscar, KONST[place]IN [address] [place] [address] Nurse Practitioner Family Medicine 10/07/22 04/22/24 Beena Chambers, PRODUCTION LEAD [address] [place] [address] Nurse Practitioner Pulmonary Disease 10/07/22 Tere Estrada, MEDICAID NURSE-INDUSTRIAL SALES REPRESENTATIVE [address] [facility] 160 [place] [address] Nurse Practitioner Psychiatry 03/04/24 Mo Calero LPC Mail Carrier And Clerk Behavioral Health 03/23/24 08/15/24 Savi Garcia, [facility] [address] [place] [address] Mail Carrier And Clerk Behavioral Health 12/01/23 12/02/23 documented as of this encounter
--- OUTSIDE RECORDS SUMMARY | 2024-09-26 09:01 | XMS_ITS | Encounter Summary ---
Author Organization [facility] Address [address] [facility] [place] [address] Care Team Providers Care Pier Hand Name Role Phone QuentinKeturah PUBLICITY CONSULTANT-DOCUMENTATION SPEC Unavailable Ralph Taylor MD Primary Care Provider Blossom Cat NP Unavailable Beena Chambers HAIR BLENDER Unavailable [phone] Blossom Badillo Unavailable Ralph Taylor MD Unavailable [phone] Tere Estrada PUBLICITY CONSULTANT-COMMISSARY WORKER Unavailable Tere Estrada PUBLICITY CONSULTANT-COMMISSARY WORKER Unavailable Mo Calero COGNOS ANALYST Unavailable Unavailable Savi Garcia LPCC Unavailable [phone] Encounter Details Date Type Department Care Team (Late st Contact Info) Description 07/17/2022 Abstract [facility] [place] [facility] [address] [facility] [address] [place] [address] Vandana Blackburn MD [address] [facility] 350 [place] [address] Social History Tobacco Use Types Packs/Day Years Used Date Smoking Tobacco: Never Smokeless Tobacco: Never Tobacco Cessation:Counseling Given: Not Answered Alcohol Use Standard Drinks/Week Comments Not Currently 0 (1 standard drink = 0.6 oz pure alcohol) Caffeine intake 1-2 cups per day, 1-2 drinks less than monthly in the past year PHQ-2 Answer Date Recorded Patient Health Questionnaire-2 Score 6 07/08/2022 Comments No Sex and Gender Information Value Date Recorded Sex Assigned at Female 11/26/2023 8:38 AM EDT Legal Sex Female 6:44 PM EDT Gender Identity Female 11/26/2023 8:38 AM EDT Sexual Orientation Straight 11/26/2023 8: 38 AM EDT COVID-19 Exposure Response Date Recorded In the last 10 days, have daiana u been in contact with someone who was confirmed or suspected to have Coronavirus/COVID-19? No / Unsure 07/17/2022 3:57 PM EDT documented as of this encounter Plan of Treatment Upcoming Encounters Date Type Department Care Team (Late st Contact Info) Description 09/29/2024 8:15 AM EDT Office Visit NOM[facility] [address] [facility] 210 [place] [address] Mario Duckworth MD [address] [facility] 210 [place] [address] 10/05/2024 10:00 AM EDT Office Visit [facility] 112 [facility] 160 [place] [address] Tere Estrada, PUBLICITY CONSULTANT-COMMISSARY WORKER 112 [facility] 160 [place] [address] 10/06/2024 10:40 AM EDT Office Visit [facility] [place] [facility] [address] [place] [address] Beena Chambers NP [address] [place] [address] documented as of this encounter Visit Diagnoses Not on filedocumented in this encounter Additional Health Concerns Assessment Noted Time PHQ-9 Depression Total Score: 22 023 8:59 AM EDT documented as of this encounter Care Teams Pier Hand Relationship Specialty Start Date End Date Keturah Saavedra, PUBLICITY CONSULTANT-DOCUMENTATION SPEC [address] [place] [address] PCP - [place] Commercial 05/17/20 Ralph Taylor MD [address] [place] [address] PCP - General Family Medicine 07/01/22 Blossom Badillo [address] [place] [address] PCP - [place] Commercial 09/16/22 Ralph Taylor MD [address] [place] [place] [address] PCP - [place] [employer] 10/17/22 Tere Estrada, PUBLICITY CONSULTANT-COMMISSARY WORKER 112 [facility] 160 [place] [address] PCP - [place] Commercial 03/19/23 Blossom Oscar NP [address] [place] [place] [phone] Nurse Practitioner Family Medicine 10/07/22 04/22/24 Beena Chambers HAIR BLENDER [address] [place] [address] Nurse Practitioner Pulmonary Disease 10/07/22 Tere Estrada, PUBLICITY CONSULTANT-COMMISSARY WORKER 112 [facility] 160 [place] [address] Nurse Practitioner Psychiatry 03/04/[address] Attendant Behavioral Health 03/23/24 08/15/24 Savi Garcia, [facility] [address] [place] [address] Court Attendant Behavioral Health 12/01/23 12/02/23 documented as of this encounter
--- OUTSIDE RECORDS SUMMARY | 2024-09-26 09:01 | XMS_ITS | Encounter Summary ---
Author Organization [facility] Address [address] [place] [address] Care Team Providers Care E Commerce Analyst Name Role Phone Ralph Taylor MD Primary Care Provider [phone] Blossom Cat NP Unavailable Beena Chambers RECEIVING CHECKER Unavailable [phone] Tere Estrada PRO SHOP ATTENDANT-GAS UTILITY WORKER Unavailable Tere Estrada PRO SHOP ATTENDANT-GAS UTILITY WORKER Unavailable Mo Calero ELECTRICAL INSPECTOR Unavailable Unavailable Savi [facility] Unavailable [phone] Reason for Visit * Reason Onset Date Comments Med Refill 04/14/2023 Encounter Details Date Type Department Care Team (Late st Contact Info) Description 04/14/2023 Refill [facility] [place] [facility] [address] [place] [address] Blossom Cat NP [address] [facility] [place] [address] Overweight with body mass index (BMI) of 29 to 29.9 in adult; Elevated lipoprotein(a) Social History Tobacco Use Types Packs/Day Years [...] week 08/04/2022 How often do you attend [facility] or catholic services? Never 08/04/2022 Do you belong to any clubs o r organizations such as catholic groups, unions, fraternal or athletic groups, or [...] Date Recorded Patient Health Questionnaire-2 Score 2 03/23/2023 [facility] of Occupat ional Health - Occupational [...] place to sleep or slept in a detention (including now)? No 08/04/2022 Comments No Sex [...] EDT Office Visit SARAH [facility]INS [address] [place] [address] Mario Duckworth MD [address] [facility] 210 [place] [address] 10/05/2024 10:00 AM EDT Office Visit [facility] 112 [facility] 160 [place] [address] Tere Estrada, PRO SHOP ATTENDANT-[facility] 112 [facility] 160 [place] [address] 10/06/2024 10:40 AM EDT Office Visit [facility] [place] [facility] [address] [place] [address] Beena Chambers NP [address] [place] [address] documented as of this encounter Visit Diagnoses Diagnosis Overweight with body mass index (BMI) of 29 to 29.9 in adult 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 documented in this encounter Additional Health Concerns Assessment Noted Time PHQ-9 Depression Total Score: 023 8:59 AM EDT documented as of this encounter Care Teams E Commerce Analyst Relationship Specialty Start Date End Date Ralph Taylor MD [address] [place] [address] PCP - General Family Medicine 07/01/22 Tere Estrada, PRO SHOP ATTENDANT-GAS UTILITY WORKER 112 [facility] [address] [place] [address] [facility] 03/19/23 4 Blossom Cat NP [address] [place] [address] Nurse Practitioner Family Medicine 10/07/22 04/22/24 Beena Chambers NP [address] [place] [address] Nurse Practitioner Pulmonary Disease 10/07/22 Tere Estrada, PRO SHOP ATTENDANT-GAS UTILITY WORKER [address] [facility] 160 [place] [address] Nurse Practitioner Psychiatry 03/04/24 Mo Calero LPC Sap Plant Maintenance Consultant Behavioral Health 03/23/24 08/15/24 Savi Garcia, [facility] [address] [facility] [address] [place] [address] Sap Plant Maintenance Consultant Behavioral Health 12/01/23 12/02/23 documented as of this encounter
--- OUTSIDE RECORDS SUMMARY | 2024-09-26 09:01 | XMS_ITS | Encounter Summary ---
Author Organization [facility] Address [address] [facility] [place] [address] Care Team Providers Care Iron Miner Blasting Name Role Phone Ralph Taylor MD Primary Care Provider [phone] Blossom Cat NP Unavailable Beena Chambers SUBSTANCE ABUSE RN Unavailable [phone] Ralph Taylor MD Unavailable [phone] Tere Estrada INVESTMENTS MANAGER-UNDERWRITING SUPPORT SPECIALIST Unavailable Tere Estrada INVESTMENTS MANAGER-UNDERWRITING SUPPORT SPECIALIST Unavailable Mo Calero [facility] Unavailable Unavailable Savi Garcia [facility] Unavailable [phone] Reason for Visit * Reason Comments Med Refill Encounter Details Date Type Department Care Team (Late st Contact Info) Description 02/26/2023 Refill [facility] 112 [facility] [address] [place] [address] Tere Estrada, INVESTMENTS MANAGER-UNDERWRITING SUPPORT SPECIALIST 112 [facility] [address] [place] [address] Moderate episode of recurrent major depressive disorder (HCC) Social History Tobacco Use Types [...] week 08/04/2022 How often do you attend [facility] or alevism services? Never 08/04/2022 Do you belong to any clubs o r organizations such as confucianism groups, unions, fraternal or athletic groups, or school groups? No 08/04/2022 How often do you attend meet ings of the clubs or organizations you belong to? Patient declined 08/04/2022 Are you , , di vorced, , never , or living with a partner? Never 08/04/2022 AUDIT-C Answer Date Recorded Q1: How often do you have a drink containing alc ohol? Monthly or less 02/21/2023 Q2: How many drinks containi ng alcohol do you have on a typical day when you are drinking? 1 or 2 02/21/2023 Q3: How often do you have si x or more drinks on one occasion? Never 02/21/2023 Overall Financial Resource Strain (CARDIA) Answe r Date Recorded How hard is it for you to pa y for the very basics like food, housing, medical care, and heating? Not hard at all 08/04/2022 PHQ-2 Answer Date Recorded Patient Health Questionnaire-2 Score 0 02/26/2023 [facility] - Occupational [...] place to sleep or slept in a mcc (including now)? No 08/04/2022 Comments No Sex and Gender Information Value Date Recorded Sex Assigned at Female 11/26/2023 8:38 AM EDT Legal Sex Female 6:44 PM EDT Gender Identity Female 11/26/2023 8:38 AM EDT Sexual Orientation Straight 11/26/2023 8: 38 AM EDT documented as of this encounter Functional Status * Over the past 2 weeks, how often have you been bothered by any of the following problems? Question Answer Date of Assessment Author Little interest or pleasure in doing things Not at all 02/26/2023 2:57 PM Fabiola Villafana LP N Feeling down, depressed, or hopeless Not at all 02/26/2023 2:57 PM Fabiola Villafana LP N Patient Health Questionnaire -2 Score 0 02/26/2023 2:57 PM Fabiola Villafana LP N documented as of this encounter Plan of Treatment Upcoming Encounters Date Type Department Care Team (Late st Contact Info) Description 09/29/2024 8:15 AM EDT Office Visit SARAH [facility] [address] [place] [address] Mario Duckworth MD [address] [place] [address] 10/05/2024 10:00 AM EDT Office Visit [facility] [address] [place] [address] Tere Estrada, INVESTMENTS MANAGER-UNDERWRITING SUPPORT SPECIALIST [address] [place] [address] 10/06/2024 10:40 AM EDT Office Visit [facility] [address] [place] [address] Beena Chambers SUBSTANCE ABUSE RN [address] [place] [address] documented as of this encounter Visit Diagnoses Diagnosis Moderate episode of recurrent major depressive disorder (HCC) documented in this encounter Additional Health Concerns Assessment Noted Time PHQ-9 Depression Total Score: 22 023 8:59 AM EDT documented as of this encounter Care Teams Iron Miner Blasting Relationship Specialty Start Date End Date Ralph Taylor MD [address] [place] [address] PCP - General Family Medicine 07/01/22 Ralph Taylor MD [address] [place] [address] PCP - [employer] [employer] 10/17/22 Tere Estrada, INVESTMENTS MANAGER-UNDERWRITING SUPPORT SPECIALIST 112 [facility] 160 [place] [address] PCP - [employer] [employer] 03/19/23 4 Blossom Cat, SUBSTANCE ABUSE RN [address] [place] [address] Nurse Practitioner Family Medicine 10/07/22 04/22/24 Beena Chambers, SUBSTANCE ABUSE RN [address] [place] [address] Nurse Practitioner Pulmonary Disease 10/07/22 Tere Estrada APRN-UNDERWRITING SUPPORT SPECIALIST 112 [facility] 160 [place] [address] Nurse Practitioner Psychiatry 03/04/24 Mo Calero LPC Telecommunications Facility Examiner Behavioral Health 03/23/24 08/15/24 Savi Garcia, [facility] [address] [facility] [address] [place] [address] Telecommunications Facility Examiner Behavioral Health 12/01/23 12/02/23 documented as of this encounter
--- OUTSIDE RECORDS SUMMARY | 2024-09-26 09:01 | XMS_ITS | Encounter Summary ---
Author Organization [facility] Address [address] [facility] [place] [address] Care Team Providers Care Single Stayer Operator Name Role Phone Ralph Taylor MD Primary Care Provider [phone] Blossom Cat NP Unavailable Beena Chambers MARKET MAKER Unavailable [phone] Tere Estrada GROUNDWATER MONITORING TECHNICIAN-WIRE TWISTER Unavailable Tere Estrada GROUNDWATER MONITORING TECHNICIAN-WIRE TWISTER Unavailable Mo Calero MOTORMAN/WOMAN Unavailable Unavailable Savi [facility] Unavailable [phone] Reason for Visit * Reason Comments Med Refill Encounter Details Date Type Department Care Team (Late st Contact Info) Description 05/23/2023 Refill [facility] 112 [facility] 160 [place] [address] Tere Estrada, GROUNDWATER MONITORING TECHNICIAN-WIRE TWISTER 112 [facility] 160 [place] [address] Moderate episode of recurrent major depressive disorder [...] week 08/04/2022 How often do you attend [facility] or oriental orthodox services? Never 08/04/2022 Do you belong to any clubs o r organizations such as adventism groups, unions, fraternal or athletic groups, or [...] Recorded Patient Health Questionnaire-2 Score 2 05/18/2023 [facility] - [facility] Stress Questionnaire Answer Date [...] in a residential (including now)? No 08/04/2022 Comments No Sex [...] AM EDT Office Visit [facility] [place] [facility] [address] [place] [address] Mario Duckworth MD [address] [place] [address] 10/05/2024 10:00 AM EDT Office Visit [facility] 112 [facility] [address] [place] [address] Tere Estrada, [facility] 112 [facility] [address] [place] [address] 10/06/2024 10:40 AM EDT Office Visit [facility] [address] [place] [phone] Beena Chambers, [place] [address] [place] [address] documented as of this encounter Visit Diagnoses Diagnosis Moderate episode of recurrent major depressive disorder (HCC) documented in this encounter Additional Health Concerns Assessment Noted Time PHQ-9 Depression Total Score: 023 8:59 AM EDT documented as of this encounter Care Teams Single Stayer Operator Relationship Specialty Start Date End Date Ralph Taylor MD [address] [place] [address] PCP - General Family Medicine 07/01/22 Tere Estrada, GROUNDWATER MONITORING TECHNICIAN-WIRE TWISTER 112 [facility] [address] PCP - [employer] [facility] 03/19/23 4 Blossom Cat NP [address] [place] [address] Nurse Practitioner Family Medicine 10/07/22 04/22/24 Beena Chambers NP [address] [place] [address] Nurse Practitioner Pulmonary Disease 10/07/22 Tere Estrada, GROUNDWATER MONITORING TECHNICIAN-WIRE TWISTER 112 [place] [facility] 160 [place] [address] Nurse Practitioner Psychiatry 03/04/24 Mo Calero LPC [facility] 03/23/24 08/15/24 Savi Garcia, [facility] [address] [facility] [address] [place] [address] [facility] 12/01/23 12/02/23 documented as of this encounter
--- OUTSIDE RECORDS SUMMARY | 2024-09-26 09:01 | XMS_ITS | Encounter Summary ---
Author Organization [facility] Address [address] [facility] [place] [address] Care Team Providers Care Sales And Marketing Agent Name Role Phone Ralph Taylor MD Primary Care Provider [phone] Beena Chambers FIELD ARTILLERY RADAR OPERATOR Unavailable [phone] Tere Estrada DELIVERER OUTSIDE-ROLL EDGE MACHINE OPERATOR Unavailable Mo Calero LPC Unavailable Unavailable Reason for Visit * Reason Comments Med Change Request Encounter Details Date Type Department Care Team (Late st Contact Info) Description 05/27/2024 Refill [facility] 112 [facility] 160 [place] [address] Tere Estrada, DELIVERER OUTSIDE-ROLL EDGE MACHINE OPERATOR 112 [facility] 160 [place] [address] Generalized anxiety disorder Social History Tobacco Use [...] How often do you attend chur or denominational services? 1 to 4 times per year 11/13/2023 Do you belong to any clubs o r organizations such as baptism groups, unions, fraternal or athletic groups, or [...] Recorded Patient Health Questionnaire-2 Score 1 05/04/2024 [facility] Occupat ional Health - [...] place to sleep or slept in a prison (including now)? No 08/04/2022 Housing Stability Vital Sign Answer Simone e Recorded In the last 12 months, was t here a time when you were not able to pay the mortgage or rent on time? No 11/13/2023 In the past 12 months, how m any times have you moved where you were living? 0 11/13/2023 At any time in the past 12 m [facility], were you homeless or living in a prison (including now)? 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 Not on file Not on file documented as of this encounter Plan of Treatment Upcoming Encounters Date Type Department Care Team (Late st Contact Info) Description 09/29/2024 8:15 AM EDT Office Visit NOM[facility] [address] [place] [phone] Mario Duckworth MD [address] [place] [address] 10/05/2024 10:00 AM EDT Office Visit [facility] [address] [place] [address] Tere Estrada, DELIVERER OUTSIDE-ROLL EDGE MACHINE OPERATOR [address] [place] [address] 10/06/2024 10:40 AM EDT Office Visit [facility] [address] [place] [address] Beena Chambers NP [address] [place] [address] documented as of this encounter Visit Diagnoses Diagnosis Generalized anxiety disorder Generalized anxiety disorder documented in this encounter Additional Health Concerns Assessment Noted Time PHQ-9 Depression Total Score: 18 025 1:44 PM EDT documented as of this encounter Care Teams Sales And Marketing Agent Relationship Specialty Start Date End Date Ralph Taylor MD [address] [place], [place] [phone] PCP - General Family Medicine 07/01/22 Beena Chambers NP [address] [place] [address] Nurse Practitioner Pulmonary Disease 10/07/22 Tere Estrada, DELIVERER OUTSIDE-ROLL EDGE MACHINE OPERATOR [address] [address] Nurse Practitioner Psychiatry 03/04/24 Mo Calero LPC Heatset Winder Operator Behavioral Health 03/23/24 08/15/24 documented as of this encounter
--- OUTSIDE RECORDS SUMMARY | 2024-09-26 09:01 | XMS_ITS | Encounter Summary ---
Author Organization [facility] Address [address] [place] [address] Care Team Providers Care Plant Attendant Or Assistant Operator Name Role Phone Quentin Keturah Bah SOLE POLISHER-MARINE ENGINEERING CONSULTANT Unavailable [phone] Ralph Taylor MD Primary Care Provider [phone] Blossom Cat NP Unavailable Beena Chambers ADMINISTRATION INTERNSHIP Unavailable [phone] Blossom Badillo Unavailable Ralph Taylor MD Unavailable [phone] Tere Estrada SOLE POLISHER-BAKER PIE Unavailable Tere Estrada SOLE POLISHER-BAKER PIE Unavailable Mo Calero COOLER OPERATOR Unavailable Unavailable Savi Garcia LPCC Unavailable [phone] Reason for Visit * Reason Comments Med Refill Encounter Details Date Type Department Care Team (Late st Contact Info) Description 08/08/2022 Refill [facility] [address] [facility] [address] [place] [address] Vandana Blackburn MD [address] [facility] [address] [place] [address] Acne vulgaris Social History Tobacco [...] How often do you attend chur or mu-ism services? Never 08/04/2022 Do you belong to any clubs o r organizations such as pentecostal groups, unions, fraternal or athletic groups, or [...] Recorded Patient Health Questionnaire-2 Score 0 08/11/2022 [place] [facility] - Occupational Stress [...] PM EDT documented as of this encounter Functional Status * Over the past 2 weeks, how often have you been bothered by any of the following problems? Question Answer Date of Assessment Author Little interest or pleasure in doing things Not at all 08/11/2022 2:23 PM EDT Adriana Dewitt MA Feeling down, depressed, or hopeless Not at all 08/11/2022 2:23 PM EDT Adriana Dewitt MA Patient Health Questionnaire -2 Score 0 08/11/2022 2:23 PM EDT Adriana Dewitt MA documented as of this encounter Plan of Treatment Upcoming Encounters Date Type Department Care Team (Late st Contact Info) Description 09/29/2024 8:15 AM EDT Office Visit NOM[facility] [address] [place] [address] Mario Duckworth MD [address] [place] [address] 10/05/2024 10:00 AM EDT Office [facility] [address] [place] [address] Tere Estrada, SOLE POLISHER-BAKER PIE [address] [place] [address] 10/06/2024 10:40 AM EDT Office Visit [facility] [address] [place] [address] Beena Chambers, ADMINISTRATION INTERNSHIP [address] [place] [address] documented as of this encounter Visit Diagnoses Diagnosis Acne vulgaris Other acne documented in this encounter Additional Health Concerns Assessment Noted Time PHQ-9 Depression Total Score: 22 023 8:59 AM EDT documented as of this encounter Care Teams Plant Attendant Or Assistant Operator Relationship Specialty Start Date End Date Keturah Saavedra, SOLE POLISHER-MARINE ENGINEERING CONSULTANT [address] [place] [address] PCP - [place] [employer] 05/17/20 Ralph Taylor MD [address] [place] [address] PCP - General Family Medicine 07/01/22 Blossom Badillo [address] [place] [address] PCP - [place] [employer] 09/16/22 Ralph Taylor MD [address] [place] [address] PCP - [place] [employer] 10/17/22 Tere Estrada APRN-BAKER PIE 112 [facility] 160 [place] [address] PCP - [place] [employer] 03/19/23 Blossom Oscar NP [address] [place] [address] Nurse Practitioner Family Medicine 10/07/22 04/22/24 Beena Chambers, ADMINISTRATION INTERNSHIP [address] [place] [address] Nurse Practitioner Pulmonary Disease 10/07/22 Tere Estrada APRN-BAKER PIE 112 [facility] 160 [place] [address] Nurse Practitioner Psychiatry 03/04/24 Mo Calero LPC Environmental Monitoring Technician Behavioral Health 03/23/24 08/15/24 Savi Garcia, [facility] [address] [facility] [address] [place] [id number] Environmental Monitoring Technician Behavioral Health 12/01/23 12/02/23 documented as of this encounter
--- OUTSIDE RECORDS SUMMARY | 2024-09-26 09:01 | XMS_ITS | Encounter Summary ---
Author Organization [facility] Address [address] [facility] [place] [address] Care Team Providers Care Vaccine Specialist Name Role Phone Ralph Taylor MD Primary Care Provider [phone] Beena Chambers PATTERN CLEANER Unavailable [phone] Aminah-Tere Rahman CLASS C TRUCK DRIVER-EXPOSURE MACHINE OPERATOR Unavailable Encounter Details Date Type Department Care Team (Late st Contact Info) Description 08/22/2024 Results Follow-Up [facility] [address] [facility] [address] [place] [address] Adriana Dewitt MA Social History Tobacco Use Types Packs/Day Years [...] often do you attend chur ch or mu-ism services? 1 to 4 times per year 11/13/2023 Do you belong to any clubs o r organizations such as denominational groups, unions, fraternal or athletic groups, or [...] Date Recorded Patient Health Questionnaire-2 Score 0 08/15/2024 [facility] of Occupat ional Health - Occupational Stress [...] place to sleep or slept in a usp (including now)? No 08/04/2022 Housing Stability Vital Sign Answer Simone e Recorded In the last 12 months, was t here a time when you were not able to pay the mortgage or rent on time? No 11/13/2023 In the past 12 months, how m any times have you moved where you were living? 0 11/13/2023 At any time in the past 12 m [facility], were you homeless or living in a usp (including now)? 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 file Not on file documented as of this encounter Plan of Treatment Upcoming Encounters Date Type Department Care Team (Late st Contact Info) Description 09/29/2024 8:15 AM EDT Office Visit [facility] [place] [facility] [address] [place] [phone] Mario Duckworth MD [address] [place] [address] 10/05/2024 10:00 AM EDT Office Visit [facility] [address] [facility] [address] [place] [address] Tere Estrada, CLASS C TRUCK DRIVER-EXPOSURE MACHINE OPERATOR 112 [facility] [address] [place] [address] 10/06/2024 10:40 AM EDT Office Visit [facility] [address] [place] [address] Beena Chabmers, PATTERN CLEANER [address] [place] [address] documented as of this encounter Visit Diagnoses Not on filedocumented in this encounter Additional Health Concerns Assessment Noted Time PHQ-9 Depression Total Score: 18 025 1:44 PM EDT documented as of this encounter Care Teams Vaccine Specialist Relationship Specialty Start Date End Date Ralph Taylor MD [address] [place] [address] PCP - General Family Medicine 07/01/22 Beena Chambers, PATTERN CLEANER [address] [place] [address] Nurse Practitioner Pulmonary Disease 10/07/22 Tere Estrada, CLASS C TRUCK DRIVER-EXPOSURE MACHINE OPERATOR 112 [facility] [address] [place] [address] Nurse Practitioner Psychiatry 03/04/24 documented as of this encounter
--- OUTSIDE RECORDS SUMMARY | 2024-09-26 09:01 | XMS_ITS | Clinical Summary ---
Author Organization [facility] Address [address] [place] [address] Care Team Providers Care Director Of Application Development Name Role Phone Agus Adhikari DO Unavailable Medications lamoTRIgine (LAMICTAL) 100 mg tablet Take 150 mg by mouth once daily. Active lurasidone (LATUDA) 40 mg tablet Take 40 mg by mouth once daily. 07/19/2024 Active escitalopram oxalate (LEXAPRO) 10 mg tablet Take 10 mg by mouth once daily. 07/19/2024 Active Norethindrone Acet-Ethinyl Est 1-20 mg-mcg per tablet Take 1 tablet by mouth once daily. 08/15/2024 6 Active Encounters Date Type Department Care Team Description 08/17/2024 10:30 AM EDT Office Visit URO/Gynecology [address] [place] [address] Vandana Rojas APRN.[employer] ASSEMBLER AND [employer]UER Encounter for urine test (Primary Dx); Bartholin's gland cyst 08/17/2024 Travel 08/10/2024 Transcribe Orders Referring Physician [address] [place] [id number] Agus Adhikari DO Bartholin's gland cyst (Primary Dx) from Last 3 Months Social History Tobacco Use Types Packs/Day Years Used Date Smoking Tobacco: Never Smokeless Tobacco: Never Tobacco Cessation:Counseling Given: Not Answered Alcohol Use Standard Drinks/Week Comments Yes 0 (1 standard drink = 0.6 oz pur e alcohol) 1 times monthly Area Deprivation Index Answer Date Nilesh rded National Score (1-100), lower number is lower ri sk 53 08/17/2024 State Score (1-10), lower number is lower risk 3 08/17/2024 Data from: https://www.neighborhoodatlas.medicine.[facility]/. Last address used for calculation [address] 08/17/2024 Comments Unknown Sex and Gender Information Value Date Recorded Sex Assigned at Not on file Legal Sex Female 10:20 AM EDT Gender Identity Not on file Sexual Orientation Straight 08/17/2024 10 :23 AM EDT Plan of Treatment Health Maintenance Due Date Last Done Comments Hepatitis B Vaccine (3 of 3 - 3-dose series) 07/04/2002 05/09/2002, 01/06/2002 Peds To Adult Transition Ini tial Discussion 2013 Peds To Adult Transition Chloe ual Assessment 11/09/2015 Anxiety Screening 11/09/2019 Chlamydia Screening (18-24) 11/09/2019 Depression Screening 11/09/2019 GC (Gonorrhea) Screening (18-) 11/09/2019 HIV Screening 11/09/2019 Hepatitis C Screening 11/09/2019 Cervical Cancer Screening 2022 DTaP,Tdap,Td Vaccine (7 - Tdap) 08/03/2024 08/03/2014, 04/30/2007, 05/15/2003, Additional history exists Influenza Vaccine (#1) 2024 04/28/2024, 2011 HPV Vaccine Completed 12/22/2019, 09/17, 08/03/2014 Meningococcal B Vaccine Completed 06/25/2020, 12/21 Procedures Procedure Name Priority Date/Time Associated Diagnosis Comments UA DIP, URINE (POC) Routine 08/17/2024 1 0:34 AM EDT Encounter for urine test from Last 3 Months Results * UA DIP, URINE (POC) (08/17/2024 10:34 AM EDT) GLUCOSE UA (POCT) Negative Negative mg/dL [facility] UROGYNECOLOGY BILIRUBIN UA (POCT) Negative Negative [facility] KETONE UA (POCT) Negative Negative mg/dL [facility] UROGYNECOLOGY SPECIFIC GRAVITY UA (POCT) 1.020 1.005 - 1.030 [facility] UROGYNECOLOGY HEMOGLOBIN/BLOO D UA (POCT) Negative Negative [facility] PH UA (POCT) 6.0 4.5 - 8.0 [facility] UROGYNECOLOGY PROTEIN UA (POCT) Negative Negative mg/dL [facility] UROGYNECOLOGY UROBILINOGEN UA (POCT) 0.2 Normal E.U./dL [facility] UROGYNECOLOGY NITRITE UA (POCT) Negative Negative [facility] UROGYNECOLOGY LEUKOCYTES UA (POCT) Negative Negative [facility] UR[facility]YNECOLOGY COLOR UA (POCT) Yellow [facility] UR[facility] CLARITY UA (POCT) Clear [facility] UROGYNECOLOGY Urine specimen (specimen) URINE SPECIMEN / Unknown 08/17/2024 10:34 AM EDT Narrative [facility] POINT OF CARE - 08/17/2024 10:34 AM EDT Location:[facility] [employer] [address], [place], [facility] [employer] Vandana Rojas MANAGER SOCIAL SERVICES.LAMINATED PLAST[employer] ASSEMBLER AND GLUER POC TESTING Final Resul t [facility] POINT OF CARE [facility] UROGYIACOLOGY [address] [address] [place], [place] from Last 3 Months Insurance [facility] CHOICE PLUS Care Teams Director Of Application Development Relationship Specialty Start Date End Date Agus Adhikari DO [address] [facility] [address] [place] [address] Obstetrics 08/10/24
--- NOTE | 2024-09-26 09:08 | US_ITS ---
The [address] [address] Patient Name: JOEL DIAZ MRN: [id number] date: 2000 Sex: F Assigned Patient Location: ER Current Patient Location: ER Accession/Order Number: [id number] Exam Date: 09/26/2024 10:37 Report Date: 09/26/2024 10:41 At the request of: ARTEM ORNELAS MD Procedure: US pelvis transvaginal Pelvic ultrasound. Reason for exam: Left-sided pelvic pain for one day. Comparison: none Technique: Transvaginal imaging of the uterus and ovaries was also obtained. Additional spectral Doppler analysis of the ovaries was also obtained. Findings: The uterus measures 7.0 x 4.3 x 2.8 cm. No fibroid. Endometrium measuring 2.1 mm. No free fluid. Right ovary measures 2.6 x 1.4 x 1.8 cm. The left ovary measures 2.7 x 1.1 x 1.5 cm. No adnexal mass or cyst. Arterial and venous Doppler waveforms. US/US pelvis transvaginal Impression: No acute findings. No evidence of ovarian torsion. Impression dictated by: Aki Monae Jr., D.O. 09/26/2024 10:41 AM Dictation Location: [place] [address] Electronically authenticated by: [id number] Y Date: 09/26/2024 10:41
--- NOTE | 2024-09-26 09:09 | ED.GENADUL1 ---
HPI HPI - General Adult General Chief complaint: Abdominal Pain Stated complaint: R ABDOMINAL PAIN Time Seen by Provider: 09/26/24 08:55 Source: patient Mode of arrival: ambulance Limitations: no limitations History of Present Illness HPI narrative: 23-year-old female presents for left lower quadrant abdominal pain. She has had it continuously for the last day. No trauma or constipation or diarrhea. She has been nauseous. No vaginal bleeding. She states because of her control she has not had a period in a year. Related Data Home Medications ?Medication ?Instructions ?Recorded ?Confirmed lamotrigine 150 mg tablet 150 mg PO DAILY 09/26/24 09/26/24 (Lamictal) lurasidone 40 mg tablet (Latuda) 40 mg PO DAILY 09/26/24 09/26/24 norethindrone acetate 1 mg-ethinyl 1 tab PO DAILY 09/26/24 09/26/24 estradiol 20 mcg tablet (Junel) Allergies Allergy/AdvReac Type Severity Reaction Status Date / Time No Known Drug Allergies Allergy Verified 09/26/24 08:56 Review of Systems ROS Narrative A ten point review of systems is negative except as noted above. PFSH PFSH Social History Little interest or pleasure in doing things: not at all Feeling down, depressed, or hopeless: not at all Exam Narrative Exam Narrative: Nurses note and vital signs reviewed and patient is not hypoxic. General: The patient appears well and in no apparent distress. Patient is resting comfortably on cart. Skin: Warm, dry, no pallor noted. There is no rash noted. Head: Normocephalic, atraumatic Eye: Normal conjunctiva, no drainage Ears, Nose, Mouth, and Throat: oral mucosa is moist. Nares patent. Cardiovascular: Regular Rate and Rhythm Respiratory: Patient is in no distress, no accessory muscle use, lungs are clear to auscultation, no wheezing, rales or rhonchi Back: non-tender GI: Tenderness present in the left lower quadrant. No masses noted. Musculoskeletal: The patient has no evidence of calf tenderness, no pitting edema, symmetrical pulses noted bilaterally Neurological: A&O, normal speech Psychiatric: Cooperative Constitutional Vital Signs, click to edit/add: Last Vital Signs Temp 98.9 F 09/26/24 08:53 Pulse 88 09/26/24 08:53 Resp 18 09/26/24 08:53 BP 125/80 09/26/24 08:53 Pulse Ox 99 09/26/24 08:53 O2 Del Method Room Air 09/26/24 08:53 Course Vital Signs Vital signs: Vital Signs Temperature 98.9 F 09/26/24 08:53 Pulse Rate 88 09/26/24 08:53 Respiratory Rate 18 09/26/24 08:53 Blood Pressure 125/80 09/26/24 08:53 Pulse Oximetry 99 09/26/24 08:53 Oxygen Delivery Method Room Air 09/26/24 08:53 Temperature 98.9 F 09/26/24 08:53 Pulse Rate 88 09/26/24 08:53 Respiratory Rate 18 09/26/24 08:53 Blood Pressure 125/80 09/26/24 08:53 Pulse Oximetry 99 09/26/24 08:53 Oxygen Delivery Method Room Air 09/26/24 08:53 Medical Decision Making MDM Narrative Medical decision making narrative: Blood work is essentially normal, test is negative. Ultrasound is negative as well. She was recommended ibuprofen and she has an appointment with her compliance engineer products in 3 days and she will keep that appointment. I do not suspect diverticulitis or appendicitis. Treatment diagnosis and follow-up were discussed with the patient. Differential Diagnosis Differential Diagnosis: Ovarian cyst, UTI, nonspecific pain Lab Data Lab results reviewed: Yes I reviewed the patient's lab results Labs: Lab Results 09/26/24 09/26/24 Range/Units 08:55 08:59 WBC 5.7 (4.0-11.0) 10^3/uL RBC 4.43 (4.20-5.40) 10^6/uL Hgb 13.4 (12.0-16.0) g/dL Hct 39.8 (36.0-48.0) % MCV 89.8 (81.0-99.0) fL MCH 30.2 (26.7-34.0) pg MCHC 33.7 (29.9-35.2) g/dL RDW 12.5 (11.0-15.0) % Plt Count 242 (150-450) 10^3/uL MPV 8.2 L (9.5-13.5) fL Neut % (Auto) 50.4 (43.0-75.0) % Lymph % (Auto) 33.6 (20.5-60.0) % [place] % (Auto) 12.8 H (1.7-12.0) % Eos % (Auto) 2.3 (0.9-7.0) % Baso % (Auto) 0.7 (0.2-2.0) % Neut # (Auto) 2.9 (1.4-6.5) 10^3/uL Lymph # (Auto) 1.9 (1.2-3.8) 10^3/uL [place] # (Auto) 0.7 (0.3-0.8) 10^3/uL Eos # (Auto) 0.1 (0.0-0.7) 10^3/uL Baso # (Auto) 0.0 (0.0-0.1) 10^3/uL Abs Immat Gran (auto) 0.01 (0.00-0.03) 10^3/uL Imm/Tot Granulo (auto) 0.2 (0.0-0.5) % Sodium 141 (136-145) mmol/L Potassium 3.8 (3.5-5.1) mmol/L Chloride 104 (98-107) mmol/L Carbon Dioxide 26.6 (21.0-32.0) mmol/L Anion Gap 14.2 BUN 15.0 (7.0-18.0) mg/dL Creatinine 0.67 (0.55-1.02) mg/dL Est GFR ( Amer) >60 (>=60 mL/min/1.73m^2) Est GFR (Non-Af Amer) >60 (>=60 mL/min/1.73m^2) BUN/Creatinine Ratio 22.4 Glucose 87 (74-106) mg/dL Calcium 9.2 (8.5-10.1) mg/dL Serum HCG, Qual Negative (NEGATIVE) Urine Color Lt. yellow (YELLOW) Urine Clarity Clear (CLEAR) Urine pH 6.0 (5.0-9.0) Ur Specific [place] >=1.030 A (1.005-1.025) Urine Protein Negative (NEG/TRACE) mg/dL Urine Glucose (UA) Negative (NEGATIVE) mg/dL Urine Ketones Negative (NEGATIVE) mg/dL Urine Occult Blood Trace-i (NEGATIVE) Urine Nitrite Negative (NEGATIVE) Urine Bilirubin Negative (NEGATIVE) Urine Urobilinogen 0.2 (0.2-1.0) EU/dL Ur Leukocyte Esterase Trace A (NEGATIVE) Urine RBC 0-2 (0-2) #/HPF Urine WBC 2-5 A (NONE SEEN) #/HPF Ur Squamous Epith Cells Few A (NONE/RARE) #/LPF Urine Crystals None seen (None Seen) #/HPF Urine Bacteria Moderate A (NONE SEEN) #/HPF Urine Casts None seen (NONE SEEN) #/LPF Urine Mucus Small A (NONE SEEN) Ur Culture Indicated? Yes-[facility] Imaging Data Pelvic ultrasound: Radiologist's impression: ITS Impressions Transvaginal US 09/26/24 09:08 Impression: No acute findings. No evidence of ovarian torsion. Impression dictated by: Aki Monae Jr., D.O. 09/26/2024 10:41 AM Dictation Location: [employer] Electronically authenticated by: [id number] Y Date: 09/26/2024 10:41 Discharge Plan Discharge Chief Complaint: Abdominal Pain Clinical Impression: Abdominal pain Patient Disposition: Home, Self-Care Time of Disposition Decision: 11:34 Condition: Good Mode of Transportation: Private Vehicle Prescriptions / Home Meds: No Action lamotrigine [Lamictal] 150 mg tablet 150 mg PO DAILY lurasidone [Latuda] 40 mg tablet 40 mg PO DAILY Rx Instructions: must administer with food (at least 350 calories) norethindrone ac-eth estradiol [03/07 (21)] 1-20 mg-mcg tablet 1 tab PO DAILY Print Language: Pashto Instructions: Abdominal Pain (ED) Referrals: Beena Chambers PLAY WRITER [Primary Care Provider] - 1 week
[2024-09-26 09:16] LABS: Glucose Urine UA NEGATIVE (NEGATIVE)
[2024-09-26 09:18] LABS: Hematocrit 39.8 % (36.0-48.0); Hemoglobin 13.4 g/dL (12.0-16.0); Immature Granulocytes Abs Auto 0.01 10^3/uL (0.00-0.03); Immature Granulocytes Pct Auto 0.2 % (0.0-0.5); Lymphocytes Absolute Auto 1.9 10^3/uL (1.2-3.8); Mean Corpuscular HGB Conc 33.7 g/dL (29.9-35.2); Mean Corpuscular Hemoglobin 30.2 pg (26.7-34.0); Mean Corpuscular Volume 89.8 fL (81.0-99.0); Platelet Count 242 10^3/uL (150-450); Red Blood Count 4.43 10^6/uL (4.20-5.40); White Blood Count 5.7 10^3/uL (4.0-11.0)
[2024-09-26 09:30] LABS: Anion Gap 14.2; Blood Urea Nitrogen 15.0 mg/dL (7.0-18.0); Calcium 9.2 mg/dL (8.5-10.1); Carbon Dioxide 26.6 mmol/L (21.0-32.0); Chloride 104 mmol/L (98-107); Estimated GFR (African America >60 (>=60 mL/min/1.73m^2); Estimated GFR (Non-African Ame >60 (>=60 mL/min/1.73m^2); Glucose 87 mg/dL (74-106); Potassium 3.8 mmol/L (3.5-5.1); Sodium 141 mmol/L (136-145)
[2024-09-26 09:37] LABS: Cast Seen? NONE SEEN #/LPF (NONE SEEN); Crystals Seen? None Seen #/HPF (None Seen); Urine Culture Indicated YES-FRMC
[2024-09-26 11:39] VITALS: BP 124/83; PULSE 78; O2SAT 99
== END 2024-09-26 11:40 | disposition home or self-care (01) ==
PROVIDERS: Emergency Provider Emergency Medicine; PCP Nurse Practitioner
DX: R10.84 Generalized abdominal pain (principal)
CPT/HCPCS: 36415; 76830; 80048; 81001; 84703; 85025; 87086; 99284